=== PATIENT | female | born 1960 | race Caucasian/White ===

== ENCOUNTER → 2016-02-29 | Outpatient (CLI) | payer BC ==
--- NOTE | 2016-02-29 11:48 | WWPN ---
DATE OF SERVICE: 02/29/2016 CHIEF COMPLAINT: Bleeding after more than one year of amenorrhea. HPI: This is a 55-year-old G1, P0-0-1-0 with a last normal menstrual period of 07/2014. She states she had no vaginal bleeding up until 02/23/2016 when she had 4 days of vaginal bleeding which was a light period. She states it was not as heavy as a normal period. She is no longer having any bleeding. She does have occasional infrequent hot flashes that are not very severe. She has been taking progesterone in the form of a cream used daily. She states she has used this for "grumpiness." She thinks it has helped. PAST MEDICAL HISTORY: Elevated cholesterol, seasonal allergies, and hypertension. MEDICATIONS: 1. Amlodipine with benazepril 1 daily. 2. Progesterone cream used daily. 3. Calcium supplement daily. 4. Vitamin D supplement daily. 5. Tumeric supplement daily. 6. Multivitamin daily. REVIEW OF SYSTEMS: Weight has been stable. She denies respiratory, cardiac, or GI problems. PHYSICAL EXAM: Blood pressure 128/83. Height 5 feet 2 inches. Weight 260 pounds. Temperature 97.3, pulse 68. This a well-developed, heavyset white female who is alert and oriented x3, in no acute distress. ABDOMEN: Soft, nontender, without palpable masses. PELVIC EXAM: Normal external genitalia. Cervix and vagina appear normal. There is no unusual discharge and no blood in the vagina. There is no evidence of prolapse. The uterus is midposition, nongravid size and nontender. There are no palpable adnexal masses or tenderness. IMPRESSION: 1. A 55-year-old early menopausal female with light postmenopausal bleeding after one year of amenorrhea. 2. History of benign D&C in 2013 for some type of abnormal bleeding. PLAN: 1. The patient will be scheduled for pelvic ultrasound. Will do this to evaluate the endometrial thickness. She states she had an endometrial biopsy attempted in 2013, which was unsuccessful and very painful according to the patient. She then did endometrial sampling in the hospital as an outpatient with anesthesia. This probably was a D&C and possible hysteroscopy. 2. If thickened endometrium is noted, she will be referred back to Dr. Lazo for a possible re-evaluation with hysteroscopy and D&C. If the endometrial is thin, consider conservative management. Total time spent with the patient 20 minutes.
--- NOTE | 2016-02-29 12:48 | US ---
EXAMINATION TYPE: US pelvic complete DATE OF EXAM: 02/29/2016 12:32 PM COMPARISON: NONE CLINICAL HISTORY: Post james bleeding one episode, no pain. TECHNIQUE: TA Date of LMP: September 2014 EXAM MEASUREMENTS: Uterus: 6.8 x 3.9 x 5.4cm Endometrial Stripe: 0.4cm Right Ovary: 1.6 x 1.3 x 1.4cm Left Ovary: 2.7 x 2.1 x 1.9cm FINDINGS: 1. Uterus: Anteverted wnl no uterine mass seen. 2. Endometrium: wnl 3. Right Ovary: wnl no ovarian or adnexal mass. 4. Left Ovary: wnl no ovarian or adnexal mass. 5. Bilateral Adnexa: wnl 6. Posterior cul-de-sac: wnl IMPRESSION: No distinct abnormality appreciated.
== END | disposition home or self-care (01) ==
LOC: WWCWWP 10:38
PROVIDERS: ATTEND Obstetrics & Gynecology
DX: N95.0 Postmenopausal bleeding (principal)
CPT/HCPCS: 76856

== ENCOUNTER → 2016-07-11 | Outpatient (CLI) | payer BC ==
--- NOTE | 2016-07-12 05:55 | WWHP ---
DATE OF SERVICE: 07/11/2016 CHIEF COMPLAINT: The patient is here for her routine gynecologic exam and mammogram. HPI: This is a 56-year-old G1, P0-0-1-0 with an LMP of 2014. She had been seen in February because of small amount of vaginal spotting. Endometrial thickness was thin. She states she has not had any recurrent bleeding since then. The patient is complaining of some vulvar pruritus greater on the left side. She denies any vaginal discharge or odor. PAST MEDICAL HISTORY: Elevated cholesterol, seasonal allergies and chronic hypertension. MEDICATIONS: 1. Amlodipine benazepril 1 daily. 2. Progesterone cream used daily 3 weeks out of every month. 3. Pravastatin 10 mg daily. ALLERGIES: No known drug allergies. PAST SURGICAL HISTORY: D&C in 2013. 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 SOCIAL HISTORY: She quit smoking at age 44 and has about 2 alcoholic drinks per month and denies drug use. She has been with her boyfriend since 2007 and lives with him on the weekends, but she does have her own home. 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 FAMILY HISTORY: Parents have dementia. Mother had CVA and osteoporosis. Father also had coronary artery disease. REVIEW OF SYSTEMS: The patient has lost 6 pounds over the last year. She denies respiratory, cardiac, or GI problems. She has been experiencing some fatigue and feeling tired. PHYSICAL EXAM: Blood pressure 119/85. Height 5 feet 3-1/2 inches. Weight 252 pounds. Temperature 98.6, pulse 67. This a well-developed, heavyset white female who is alert and oriented x3 in no acute distress. HEENT is within normal limits. NECK: Supple without mass or thyromegaly. CHEST AND LUNGS: Clear to auscultation. HEART: Regular rate and rhythm. Breasts are without mass or discharge. Axillary exam is negative for adenopathy. BACK: Negative for CVA tenderness. ABDOMEN: Mildly obese, soft, nontender, without palpable masses. PELVIC EXAM: External genitalia reveals some mild generalized vulvar erythema. The perineum has a mild pallor throughout. She also has a well-demarcated area that extends from the perineum to the perianal area and that appears as mild erythema. She states she was diagnosed with intertrigo between the buttocks and the posterior area behind the rectum. Cervix and vagina appear normal. There is no unusual vaginal discharge. There is no cervical motion tenderness. The uterus is midposition, nongravid size and nontender. There are no palpable adnexal masses or tenderness. Rectovaginal exam is negative for mass or tenderness and is negative for occult blood. EXTREMITIES: Nontender. IMPRESSION: A 56-year-old menopausal female with vulvar pruritus and mild pallor in the perineal region. There is also some inflammation that extends to the perianal area. Differential diagnosis will include lichen sclerosus, chronic vulvitis as well as intertrigo. PLAN: 1. Pap smear was deferred, since she had a normal one last year. 2. Self breast examination was discussed. 3. Mammogram will be done today. 4. We will have a trial of Kenalog 0.1% cream, which she will use the vulvar area as well as the perineal and perianal areas twice a day for the next 2 weeks. She will then use it p.r.n. She will return in approximately 2 months for re-evaluation. If no significant change, consider perineal and/or vulvar biopsy. 5. She will also return in one year.
--- NOTE | 2016-07-12 09:57 | MM ---
Reason for exam: screening (asymptomatic). Last mammogram was performed 1 year and 1 month ago. History: Patient is nulliparous. Taking progesterone for 6 years beginning at age 44. Physical Findings: A clinical breast exam by your physician is recommended on an annual basis and results should be correlated with mammographic findings. MG Screening Mammo w CAD Bilateral CC and MLO view(s) were taken. Prior study comparison: June 09, 2015, left breast MG work up mamm w CAD LT. June 01, 2015, bilateral MG screening mammo w CAD. There are scattered fibroglandular densities. There is no discrete abnormality. ASSESSMENT: Negative, BI-RAD 1 RECOMMENDATION: Routine screening mammogram of both breasts in 1 year.
== END ==
LOC: WWCWWP 16:01
PROVIDERS: ATTEND Obstetrics & Gynecology
DX: Z12.31 Encounter for screening mammogram for malignant neoplasm of breast (principal)

== ENCOUNTER → 2017-03-08 | Outpatient (CLI) | payer BC ==
--- NOTE | 2017-03-13 12:35 | HM ---
HOLTER MONITOR REPORT DATE OF SERVICE: 03/08/2017 INDICATION OF THE STUDY: Palpitations. The patient was monitored for 24 hours. The baseline rhythm appeared to be sinus mechanism with a minimum heart rate of 48 beats per minute. Max heart rate 150 beats per minute, average heart rate 74 beats per minute. Ventricular ectopic events were presented in less than 1% of the total beats count. Supraventricular ectopic events were in less than 1% of the total beats count. The patient had no evidence of sinus pause or sinus rhythm. No evidence of cardiac arrhythmia noted. No evidence of any advanced AV block noted. CONCLUSION: 1. Sinus rhythm as a baseline mechanism. 2. Rare ventricular ectopic events. 3. Rare supraventricular ectopic events. 4. There is no evidence of sinus pause or sinus arrest. 5. There is no evidence of any advanced AV block. 6. There is no evidence of any sustained tachyarrhythmia noted. MMODL / IJN: [id number] /
== END | disposition home or self-care (01) ==
LOC: RADECHMAIN 11:55
PROVIDERS: ATTEND Family Medicine
DX: R00.2 Palpitations (principal)
CPT/HCPCS: 93225; 93226

== ENCOUNTER → 2017-04-19 | Outpatient (CLI) | payer BC ==
--- NOTE | 2017-04-19 20:05 | CONS ---
CONSULTATION DATE OF SERVICE: 04/19/2017. SUBJECTIVE: An 56-year-old lady has been evaluated in [facility] Center for possible obstructive sleep apnea-hypopnea syndrome. HISTORY OF PRESENT ILLNESS/SLEEP-WAKE EVALUATION: The patient had a sleep study about 15 years ago, at that time she was told that she has borderline changes of her breathing. At the present time her sleep schedule on working days is from around 10 or 11 p.m. until 5 or 6:30 a.m. and on weekends from around 11p.m. to around 8 a.m. No problems with falling asleep. She has an ipad and uses her iphone in her bedroom. She usually sleeps on the side position. She snores and her snoring has become more loud for the last year while she also increased her weight. She has awakenings with severe acid reflux, some changes of the breathing and feels palpitation feeling that her heart is stopped and she sits up in her bed. In the morning she wakes up tired. She may have sleepiness during the day. [place] Sleepiness Scale increased to 10. She wakes up from sleep up to 6 times and up to 3 episodes of nocturia. PAST MEDICAL HISTORY: Positive for hypertension, hyperlipidemia, asthma. PAST SURGICAL HISTORY: D and C. SOCIAL HISTORY: Positive for smoking for about 20 years, half pack a day, quit 13 years ago. Alcohol consumption occasional. MEDICATIONS: Amlodipine, simvastatin, Qvar inhaler on a p.r.n. basis. FAMILY HISTORY: Hypertension, angina, heart problems, hyperlipidemia, stroke, arthritis, snoring, headaches, insomnia, acid reflux. REVIEW OF SYSTEMS: Multiple awakenings from sleep, tiredness and sleepiness during the day. Increasing weight. PHYSICAL EXAM: lady without distress. BP 158/81, HR 62, RR 16, height 5 feet 3 inches, weight 258, BMI 35.7, temperature 97.8. Oxygen saturation at room air 97%. Oropharynx, short distance between soft palate and posterior pharyngeal wall. Neck 15-1/4 inch in circumference. Abdomen obese. HEENT PERRLA, EOMI, evaluation of oropharynx showed tongue protrudes midline. Neck Supple, no JVD. Thyroid is not palpable. LUNGS Clear to percussion and to auscultation. Good air exchange. No wheezing or rhonchi. HEART S1, S2 regular. No murmurs, gallops, or rubs. ABDOMEN Soft and nontender. Bowel sounds are present. No organomegaly appreciated. EXTREMITIES No clubbing or cyanosis. OPERATIONS MANAGER STATION Awake, alert, and oriented X3. Cranial nerves 2 to 7 intact. There is no fasciculation or atrophy. noted. No focal deficits observed. IMPRESSION: 1. Snoring, multiple awakenings from sleep with nocturia, excessive daytime sleepiness. [place] Sleepiness Scale increased to 10. Obstructive sleep apnea- hypopnea syndrome. 2. Obesity, body mass index 45.73. 3. Hypertension. 4. Hyperlipidemia. 5. History of asthma. 6. Status post D and C. PLAN: 1. Polysomnography for evaluation of patient's breathing during sleep. 2. CPAP/BiPAP titration if sleep study confirms obstructive sleep apnea-hypopnea syndrome. 3. Preferable position during sleep on the side. 4. No driving if patient feels any sleepiness. Patient is aware of civil and criminal liability for unsafe driving. 5. I will see patient for follow up visit to explain results of testing and following plan. Thank you very much for referring the patient for consultation. Enzo Benitez MD, PhD, FAASM Diplomat of [place] [employer] Specialties [place] [employer] Medicine Side Stitching Machine Operator of [facility] [place] MMODL / IJN: [id number] /
== END | disposition home or self-care (01) ==
LOC: SLEEP 13:37
PROVIDERS: ATTEND Internal Medicine
DX: G47.33 Obstructive sleep apnea (adult) (pediatric) (principal); E66.9 Obesity, unspecified; I10 Essential (primary) hypertension; F10.20 Alcohol dependence, uncomplicated; E78.5 Hyperlipidemia, unspecified; J45.909 Unspecified asthma, uncomplicated; Z87.59 Personal history of other complications of pregnancy, childbirth and the puerperium; Z68.42 Body mass index [BMI] 45.0-49.9, adult; Z87.891 Personal history of nicotine dependence; Z79.899 Other long term (current) drug therapy; Z79.51 Long term (current) use of inhaled steroids
CPT/HCPCS: 99211

== ENCOUNTER → 2017-07-24 | Outpatient (CLI) | payer BC ==
[2017-07-24 16:22] VITALS: BP 119/83; PULSE 69; TEMP 98.5; BMI 44.4
--- NOTE | 2017-07-24 17:10 | P.HPOB ---
History of Present Illness H&P Date: 07/24/17 Chief Complaint: The patient is here for her routine gynecologic exam and mammogram. This is a 57-year-old with an LMP of 2015. The patient is without gynecologic complaints and denies any postmenopausal bleeding. Review of Systems Weight has been stable. She denies respiratory, cardiac, or G.I. problems. Past Medical History Past Medical History: GERD/Reflux, Hyperlipidemia, Hypertension Additional Past Medical History / Comment(s): Seasonal allergies. 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 History of Any Multi-Drug Resistant Organisms: None Reported Additional Past Surgical History / Comment(s): colonoscopy. D&C 2013. Past Anesthesia/Blood Transfusion Reactions: No Reported Reaction Past Psychological History: No Psychological Hx Reported Smoking Status: Former smoker (Quit at age 44) Past Alcohol Use History: Rare Past Drug Use History: None Reported Additional History: She has been with her boyfriend since 2007. She lives with him on the weekends. 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 - Past Family History Father Family Medical History: Coronary Artery Disease (CAD), Dementia Mother Family Medical History: CVA/TIA, Dementia Brother(s) Family Medical History: CVA/TIA Medications and Allergies Home Medications Medication Instructions Recorded Confirmed Type Jamie Cit/Mag/D3/Zn/Heel Blacker/Fredy/Bor 1 each PO 08/04/13 08/04/13 History [Citracal-Vit D + Magnesium Tab] Multivitamins, Thera [Multivitamin] 1 each PO DAILY 08/04/13 07/24/17 History Fexofenadine/Pseudoephedrine 1 each PO BID 07/24/17 07/24/17 History [Lani-D 12 Hour Tablet] Fluticasone Propionate [Flonase 1 spray EA NOSTRIL DAILY 07/24/17 07/24/17 History Allergy Relief] Hydrocortisone/Iodoquinol Crm 1 applic TOPICAL BID PRN 07/24/17 07/24/17 History [Vytone 1%-1%] Meclizine [Antivert] 25 mg PO TID PRN 07/24/17 07/24/17 History Rosuvastatin Calcium [Crestor] mg PO DAILY 07/24/17 History Ubidecarenone [Co Q-10] mg PO DAILY 07/24/17 History amLODIPine BES/OLMESARTAN MED tab PO DAILY 07/24/17 History [amLODIPine BES/OLMESARTAN MED 10-20 mg] buPROPion HCL [Wellbutrin SR] mg PO DAILY 07/24/17 History Allergies Allergy/AdvReac Type Severity Reaction Status Date / Time latex Allergy red skin Verified 07/24/17 16:17 Penicillins AdvReac Nausea & Verified 07/24/17 16:17 Vomiting & Diarrhea Exam - Vital Signs Vital signs: Vital Signs Temp Pulse BP 07/24/17 16:17 98.5 F 69 119/83 Intake and Output 07/24/17 07/24/17 07/24/17 06:59 14:59 22:59 Other: Weight 113.852 kg Height 5'3", BMI 44.5. This is a well-developed well-nourished heavyset white female who is alert and oriented times 3 in no acute distress. HEENT: Within normal limits. NECK: Supple without mass or thyromegaly. CHEST AND LUNGS: Clear to auscultation. HEART: Regular rate and rhythm. BREASTS: Are without mass or discharge. AXILLARY EXAM: Negative for adenopathy. BACK: Negative for CVA tenderness. ABDOMEN: Soft, obese, nontender, without palpable masses. PELVIC EXAM: Normal external genitalia with minimal atrophy. Cervix and vagina appear normal with minimal atrophy. There is no unusual discharge. There is no evidence of prolapse. The uterus is midposition, nongravid size and nontender. There are no palpable adnexal masses or tenderness. RECTAL EXAM: rectovaginal exam is negative for mass or tenderness and is negative for occult blood. EXTREMITIES: Nontender. IMPRESSION: 1. 57-year-old menopausal female with normal gynecologic exam. PLAN: 1. Pap smear was performed. 2. Self breast awareness was discussed. 3. Screening mammogram will be done today. 4. Osteoporosis prevention was discussed. 5. She will return in one year.
--- NOTE | 2017-07-26 11:54 | MM ---
Reason for exam: screening (asymptomatic). Last mammogram was performed 1 year ago. History: Patient is nulliparous. Taking progesterone for 6 years beginning at age 44. Physical Findings: A clinical breast exam by your physician is recommended on an annual basis and results should be correlated with mammographic findings. MG Screening Mammo w CAD Bilateral CC and MLO view(s) were taken. Prior study comparison: July 11, 2016, bilateral MG screening mammo w CAD. June 09, 2015, left breast MG work up mamm w CAD LT. There are scattered fibroglandular densities. There is no discrete abnormality. ASSESSMENT: Negative, BI-RAD 1 RECOMMENDATION: Routine screening mammogram of both breasts in 1 year.
== END | disposition home or self-care (01) ==
LOC: WWCWWP 15:58
PROVIDERS: ATTEND Obstetrics & Gynecology
DX: Z12.31 Encounter for screening mammogram for malignant neoplasm of breast (principal)
CPT/HCPCS: 77067

== ENCOUNTER → 2017-09-10 | Outpatient (CLI) | payer BC ==
--- NOTE | 2017-09-10 11:29 | MR ---
EXAMINATION TYPE: MR brain wo/w con DATE OF EXAM: 09/10/2017 COMPARISON: None HISTORY: Dizziness CONTRAST: Performed utilizing 12.5 mL intravenous Gadavist gadolinium contrast. TECHNIQUE: Multiplanar, multiecho imaging on a 3.0 Lill[place] magnet is performed through the brain. Stud y is performed within 24 hours of arrival to the hospital. The craniovertebral junction is normal. The pituitary is normal. Diffusion-weighted imaging is performed. No abnormal hyperintensity is present to suggest an acute i ntracranial infarct or acute ischemic change. Suspicious signal within the brain is not evident. Ventricles and sulci are appropriate for the patient age. No abnormal enhancement is evident. IMPRESSIONS: 1. Normal pre and postcontrast MRI brain.
--- NOTE | 2017-09-10 15:27 | MR ---
EXAMINATION TYPE: MR angio head wo con DATE OF EXAM: 09/10/2017 COMPARISON: None HISTORY: Dizziness TECHNIQUE: Time of flight images focusing on the [place] were performed without contrast. 3- D [id number] reconstructed images are reviewed. Source images are reviewed. FINDINGS: Vertebral arteries appear codominant. Basilar artery is unremarkable. Posterior cerebral v asculature is normal. Internal carotid arteries bifurcate into anterior and middle cerebral arteries. The anterior communic ating artery is patent. Middle cerebral artery branches appear normal. Ophthalmic artery takeoffs pamella ear normal. The patent posterior communicating arteries are somewhat small. IMPRESSION: [place] appears within normal limits.
== END | disposition home or self-care (01) ==
LOC: RADMRIMAIN 09:13
PROVIDERS: ATTEND Midwife
DX: R42 Dizziness and giddiness (principal)
CPT/HCPCS: 70544; 70553; A9581

== ENCOUNTER → 2017-09-13 | Outpatient (CLI) | payer BC ==
--- NOTE | 2017-09-13 15:04 | PN ---
PROGRESS NOTE DATE OF SERVICE: 09/13/2017 57-year-old lady has been followed in Sleep Center for treatment of obstructive sleep apnea-hypopnea syndrome. Recently patient had home sleep apnea test and CPAP titration. Home sleep apnea test showed apnea-hypopnea index 28.1. Subsequently, she had CPAP titration and titration was effective and she was started on treatment with CPAP. Today, is her first visit after she received her CPAP unit. Patient reported that she feels better with the machine, she sleeps better and she feels better during the day. [place] Sleepiness Scale today is 9. I checked patient's CPAP unit. CPAP pressure 8 cm of water. Usage 42 out of 52 nights for more than 4 hours, which is a about 80%, more than 4 hours per night. Average usage is 4.4 hours. Leak is 12 L/minute, which is acceptable. Apnea-hypopnea index 4.9, which is acceptable. MEDICATIONS: progesterone, vitamins, amlodipine, Wellbutrin and Loratadine. PHYSICAL EXAM: Patient in no distress. BP 117/74, HR 65, RR 18, weight 250.4, temperature 98.4. Oropharynx: Wide pillars, moderately low position of soft palate. Abdomen is slightly obese. Neck Supple, no JVD. Thyroid is not palpable. LUNGS Clear to percussion and to auscultation. Good air exchange. No wheezing or rhonchi. HEART S1, S2 regular. No murmurs, gallops, or rubs. ABDOMEN: Obese. Soft and nontender. Bowel sounds are present. No organomegaly appreciated. EXTREMITIES No clubbing or cyanosis. NATURAL RESOURCES EXTENSION EDUCATOR Awake, alert, and oriented X3. Cranial nerves 2 to 7 intact. There is no fasciculation or atrophy. noted. No focal deficits observed. IMPRESSION: 1. Obstructive sleep apnea-hypopnea syndrome in moderate range close to severe apnea- hypopnea index 28.1, mostly on control on CPAP at 8 cm of water. Patient demonstrated great compliance with treatment benefitting from treatment. 2. Obesity. 3. Hypertension. 4. Hyperlipidemia. 5. History of asthma. 6. Status post D and C. PLAN: 1. Continue treatment with CPAP every night for the whole night. 2. Losing weight. 3. Sleep hygiene with regular time in bed for at least 8 hours. 4. No driving if feeling any sleepiness. Thank you very much for allowing me to participate in management of your patient. Sincerely, Enzo Benitez MD, PhD, FAASM Diplomat of [place] [employer] Special[employer] [place] [employer] Loom Inspector of [facility] [place] ROCÍO / MATTIE: [id number] /
== END | disposition home or self-care (01) ==
LOC: SLEEP 13:57
PROVIDERS: ATTEND Internal Medicine
DX: G47.33 Obstructive sleep apnea (adult) (pediatric) (principal); E66.9 Obesity, unspecified; I10 Essential (primary) hypertension; E78.5 Hyperlipidemia, unspecified; J45.909 Unspecified asthma, uncomplicated; Z98.890 Other specified postprocedural states; Z79.818 Long term (current) use of other agents affecting estrogen receptors and estrogen levels; Z99.89 Dependence on other enabling machines and devices; Z79.899 Other long term (current) drug therapy

== ENCOUNTER → 2018-07-30 | Outpatient (CLI) | payer BC ==
--- NOTE | 2018-07-31 01:12 | MR ---
EXAMINATION TYPE: MR ankle RT wo con DATE OF EXAM: 07/30/2018 COMPARISON: None HISTORY: Pain in right foot /Peroneal tendonitis Standard multiplanar, multisequence MRI departmental protocol Multiplanar, multisequence images of the right ankle were acquired. FINDINGS: There is plantar calcaneal spurring. Achilles tendon is intact. Plantar fascia is intact. S ubtalar joint appears normal. Ankle mortise is anatomic. Joint spaces are fairly normal. The medial a nd lateral flexor tendons appear intact. Collateral ligaments are intact. There is diffuse increased signal in the proximal cuboidal bone on the T2 images. There is no fractur e line seen. There is mild increased signal also in the anterior calcaneus at the calcaneal cuboidal joint. There is subcutaneous edema involving the lateral aspect of the midfoot. There is mild ankle j oint effusion. IMPRESSION: There is some edema in the mid foot on both sides of the calcaneal cuboidal joint consistent with a s ignificant bone bruise. No fracture line seen. Mild ankle joint effusion. No evidence of ligament or tendon tear. Subcutaneous edema.
== END | disposition home or self-care (01) ==
LOC: RADMRIMAIN 16:03
PROVIDERS: ATTEND Podiatrist Foot & Ankle Surgery
DX: M25.471 Effusion, right ankle (principal)

== ENCOUNTER → 2018-10-01 | Outpatient (CLI) | payer BC ==
[2018-10-01 10:58] VITALS: BP 126/89; PULSE 69; RESP 18; TEMP 98.1; BMI 44.2
--- NOTE | 2018-10-01 12:16 | P.HPOB ---
History of Present Illness H&P Date: 10/01/18 Chief Complaint: The patient is here for her routine gynecologic exam and ma mmogram. This is a 58-year-old with an LMP of 2015. The patient is without gynecologic complaints and denies any postmenopausal bleeding. Review of Systems The patient's weight has been stable over the last year. She denies respiratory, cardiac, or G.I. problems. Musculoskeletal: she has been having right foot problems and is seeing somebody for this. Past Medical History Past Medical History: Coronary Artery Disease (CAD), GERD/Reflux, Hyperlipidemia, Hypertension Additional Past Medical History / Comment(s): Seasonal allergies. 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 History of Any Multi-Drug Resistant Organisms: None Reported Additional Past Surgical History / Comment(s): colonoscopy 2008. D&C 2013. Past Anesthesia/Blood Transfusion Reactions: No Reported Reaction Past Psychological History: No Psychological Hx Reported Smoking Status: Former smoker Past Alcohol Use History: Rare Past Drug Use History: None Reported Additional History: Quit smoking at age 44. She is single and has been with her boyfriend since 2018. She spends much of her summer living with him, but they live separately during the school year. 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 - Past Family History Father Family Medical History: Coronary Artery Disease (CAD), Dementia Mother Family Medical History: CVA/TIA, Dementia Brother(s) Family Medical History: CVA/TIA Medications and Allergies Home Medications Medication Instructions Recorded Confirmed Type Hydrocortisone/Iodoquinol Crm 1 applic TOPICAL BID PRN 07/24/17 10/01/18 History [Vytone 1%-1%] Meclizine [Antivert] 25 mg PO TID PRN 07/24/17 10/01/18 History Rosuvastatin Calcium [Crestor] 20 mg PO DAILY 07/24/17 10/01/18 History Ubidecarenone [Co Q-10] 200 mg PO DAILY 07/24/17 10/01/18 History amLODIPine BES/OLMESARTAN MED 1 tab PO DAILY 07/24/17 10/01/18 History [amLODIPine BES/OLMESARTAN MED 10-20 mg] buPROPion HCL [Wellbutrin SR] 150 mg PO DAILY 07/24/17 10/01/18 History Cholecalciferol (Vitamin D3) 5,000 unit PO DAILY 10/01/18 10/01/18 History [Vitamin D3] Loratadine [Claritin] 10 mg PO DAILY 10/01/18 10/01/18 History Allergies Allergy/AdvReac Type Severity Reaction Status Date / Time latex Allergy red skin Verified 10/01/18 10:59 Penicillins AdvReac Nausea & Verified 10/01/18 10:59 Vomiting & Diarrhea Exam Vital Signs Temp Pulse Resp BP Pulse Ox 10/01/18 10:52 98.1 F 69 18 126/89 97 Intake and Output 09/30/18 10/01/18 10/01/18 22:59 06:59 14:59 Other: Weight 113.398 kg Height 5'3", weight 250 pounds, BMI 44.3. This is a well-developed well-nourished heavyset white female who is alert and oriented times 3 in no acute distress. HEENT: Within normal limits. NECK: Supple without mass or thyromegaly. CHEST AND LUNGS: Clear to auscultation. HEART: Regular rate and rhythm. BREASTS: Are without mass or discharge. AXILLARY EXAM: Negative for adenopathy. BACK: Negative for CVA tenderness. ABDOMEN: Soft, obese, nontender, without palpable masses. PELVIC EXAM: Normal external genitalia with minimal atrophy. Cervix and vagina appear normal with minimal atrophy. There is no unusual discharge. There is no evidence of prolapse. The uterus is midposition, nongravid size and nontender. There are no palpable adnexal masses or tenderness. Bimanual examination is somewhat limited secondary to her size. RECTAL EXAM: Rectovaginal exam is negative for mass or tenderness and is negative for occult blood. EXTREMITIES: Nontender. IMPRESSION: 1. 58-year-old menopausal female with normal gynecologic exam. PLAN: 1. Pap smear was deferred since she had a normal one on 07/24/2017. 2. Self breast awareness was discussed with the patient. 3. Screening mammogram will be done today. 4. Osteoporosis prevention was discussed. I have stressed the importance of adequate calcium, vitamin D and regular exercise. Recommended amounts of calcium and vitamin D were also discussed. 5. I have recommended screening colonoscopy since it has been about 10 years since her last one. I have recommended that she speak with Dr. Murillo's office regarding this to see if they can help her to arrange for a colonoscopy. 6. She was advised to return in one year for her annual well woman exam.
--- NOTE | 2018-10-02 10:03 | MM ---
Reason for exam: screening (asymptomatic). Last mammogram was performed 1 year and 2 months ago. History: Patient is nulliparous. Taking progesterone for 6 years beginning at age 44. Physical Findings: A clinical breast exam by your physician is recommended on an annual basis and results should be correlated with mammographic findings. MG Screening Mammo w CAD Bilateral CC and MLO view(s) were taken. Prior study comparison: July 24, 2017, bilateral MG screening mammo w CAD. July 11, 2016, bilateral MG screening mammo w CAD. There are scattered fibroglandular densities. There is no discrete abnormality. No significant changes when compared with prior studies. ASSESSMENT: Negative, BI-RAD 1 RECOMMENDATION: Routine screening mammogram of both breasts in 1 year.
== END | disposition home or self-care (01) ==
LOC: WWCWWP 10:43
PROVIDERS: ATTEND Obstetrics & Gynecology
DX: Z12.31 Encounter for screening mammogram for malignant neoplasm of breast (principal)
CPT/HCPCS: 77067

== ENCOUNTER 2018-12-11 07:28 | Day surgery (SDC) | payer BC ==
[2018-12-10 09:21] VITALS: BMI 44.2
--- NOTE | 2018-12-11 07:12 | P.GSHP ---
History of Present Illness H&P Date: 12/11/18 CHIEF COMPLAINT: Colon screen HISTORY OF PRESENT ILLNESS: The patient is a 58-year-old female who presents for colon screen. Lower endoscopy was offered for further evaluation and management. PAST MEDICAL HISTORY: Please see list. PAST SURGICAL HISTORY: Please see list. MEDICATIONS: Please see list. ALLERGIES: Please see list. SOCIAL HISTORY: No illicit drug use FAMILY HISTORY: No reports of Crohn disease or ulcerative colitis. REVIEW OF ORGAN SYSTEMS: CONSTITUTIONAL: No reports of fevers or chills. PHYSICAL EXAM: VITAL SIGNS: Stable GENERAL: Well-developed pleasant in no acute distress. HEENT: No scleral icterus. Extraocular movements grossly intact. Moist buccal mucosa. NECK: Supple without lymphadenopathy. CHEST: Unlabored respirations. Equal bilateral excursions. CARDIOVASCULAR: Regular rate and rhythm. Distal 2+ pulses. ABDOMEN: Soft, nontender, nondistended. MUSCULOSKELETAL: No clubbing, cyanosis, or edema. ASSESSMENT: 1. Colon screen. PLAN: 1. Recommend proceeding with a lower endoscopy Past Medical History Past Medical History: Coronary Artery Disease (CAD), GERD/Reflux, Hyperlipidemia, Hypertension, Skin Disorder, Sleep Apnea/CPAP/BIPAP Additional Past Medical History / Comment(s): SEASONAL ALLERGIES, USES C-PAP MACHINE, INTERTRIGO BUTTOCKS AREA., STATES DR SAID HEART FLUTTERED DURING HEART CATH- STATES 40% BLOCKAGE.., HEMORRHOID, BLOOD IN STOOL, STATES CT SCHEDULED TO CHECK FOR POSSIABLE HORNERS SYNDROME (LEFT EYELID DROOPS SLIGHTLY) History of Any Multi-Drug Resistant Organisms: None Reported Past Surgical History: Heart Catheterization Additional Past Surgical History / Comment(s): colonoscopy 2008. D&C 2013. Past Anesthesia/Blood Transfusion Reactions: No Reported Reaction Past Psychological History: Anxiety Smoking Status: Former smoker Past Alcohol Use History: Rare Additional Past Alcohol Use History / Comment(s): QUIT SMOKING 15 YRS AGO ( 2003), SMOKED 1/2 PPD, SMOKED 20 YEARS. Past Drug Use History: None Reported - Past Family History Father Family Medical History: Coronary Artery Disease (CAD), Dementia Mother Family Medical History: CVA/TIA, Dementia Brother(s) Family Medical History: CVA/TIA Medications and Allergies Home Medications Medication Instructions Recorded Confirmed Type Rosuvastatin Calcium [Crestor] 20 mg PO HS 07/24/17 12/10/18 History buPROPion HCL [Wellbutrin SR] 150 mg PO DAILY 07/24/17 12/10/18 History Cholecalciferol (Vitamin D3) 5,000 unit PO DAILY 10/01/18 12/10/18 History [Vitamin D3] Loratadine [Claritin] 10 mg PO DAILY 10/01/18 12/10/18 History Alpha Lipoic Acid 50 mg PO DAILY 12/10/18 12/10/18 History Aspirin [Adult Low Dose Aspirin EC] 81 mg PO HS 12/10/18 12/10/18 History Multivitamins, Thera [Multivitamin 1 tab PO DAILY 12/10/18 12/10/18 History (formulary)] Ubidecarenone [Co Q-10] 100 mg PO BID 12/10/18 12/10/18 History amLODIPine BESYLATE/BENAZEPRIL 1 each PO DAILY 12/10/18 12/10/18 History [amLODIPine BESYLATE/BENAZEPRIL 5-10 MG] Allergies Allergy/AdvReac Type Severity Reaction Status Date / Time latex Allergy red skin Verified 12/10/18 08:45 Penicillins AdvReac Nausea & Verified 12/10/18 08:45 Vomiting & Diarrhea
[~2018-12-11 07:28] MED LIST: LACTATED RINGERS 1,000 ML IV SCH; LIDOCAINE 1% 20 ML VIAL (10MG/ML) FOR IV START INTRADERMA PRN
[2018-12-11 07:49] VITALS: RESP 16; TEMP 98.4
[2018-12-11] MEDS ORDERED: PROPOFOL 10 MG/ML 20 ML VIAL IV ONE (08:05)
--- NOTE | 2018-12-11 08:30 | P.PCN ---
Date of Procedure: 12/11/18 Description of Procedure: PREOPERATIVE DIAGNOSIS: Colonoscopy screening. Family history colon polyps POSTOPERATIVE DIAGNOSIS: Colonoscopy screening. Diverticulosis, scattered. Family history colon polyps External hemorrhoids, grade 2 OPERATION: Colonoscopy to the ileocecal valve and appendiceal orifice. SURGEON: Corinna Otero MD. ANESTHESIA: MAC. INDICATIONS: The patient is a 58-year-old female who presents for colonoscopy screening. This is her first colonoscopy per screening guidelines. Benefits and risks were described and informed consent was obtained. DESCRIPTION OF PROCEDURE: The patient had undergone Suprep. She had been brought into the operating room and laid in the left lateral decubitus position. After adequate intravenous sedation, the rectum was examined with 2% lidocaine jelly. External hemorrhoids were encountered. The rectal tone was within normal limits. No lesions were palpated in the rectal vault. An Olympus colonoscope was advanced until the ileocecal valve and appendiceal orifice were clearly viewed. The prep was excellent with clear visualization of the mucosal folds. The scope was removed with visualization of each mucosal fold. Scattered diverticulosis was encountered. No large colonic polyps were found. No evidence of focal colitis was found. Retroflexion of the scope demonstrated grade 1 internal hemorrhoids without active bleeding or inflammation. The colon was desufflated. The patient had tolerated the procedure well. Withdrawal time was over 6 minutes. FINDINGS: Aronchick preparation quality scale 1 (1-5) Internal hemorrhoids, grade 1 External prolapsed hemorrhoids, grade 2 No arteriovenous malformations. No large adenomatous polyps. No focal colitis. RECOMMENDATIONS: Lower endoscopy in 5 years, 2023 Plan - Discharge Summary New Discharge Prescriptions: No Action buPROPion HCL [Wellbutrin SR] 150 mg PO DAILY Rosuvastatin Calcium [Crestor] 20 mg PO HS Loratadine [Claritin] 10 mg PO DAILY Cholecalciferol (Vitamin D3) [Vitamin D3] 5,000 unit PO DAILY Multivitamins, Thera [Multivitamin (formulary)] 1 tab PO DAILY amLODIPine BESYLATE/BENAZEPRIL [amLODIPine BESYLATE/BENAZEPRIL 5-10 MG] 1 each PO DAILY Ubidecarenone [Co Q-10] 100 mg PO BID Aspirin [Adult Low Dose Aspirin EC] 81 mg PO HS Alpha Lipoic Acid 50 mg PO DAILY Discharge Medication List Rosuvastatin Calcium [Crestor] 20 mg PO HS 07/24/17 [History] buPROPion HCL [Wellbutrin SR] 150 mg PO DAILY 07/24/17 [History] Cholecalciferol (Vitamin D3) [Vitamin D3] 5,000 unit PO DAILY 10/01/18 [History] Loratadine [Claritin] 10 mg PO DAILY 10/01/18 [History] Alpha Lipoic Acid 50 mg PO DAILY 12/10/18 [History] Aspirin [Adult Low Dose Aspirin EC] 81 mg PO HS 12/10/18 [History] Multivitamins, Thera [Multivitamin (formulary)] 1 tab PO DAILY 12/10/18 [History] Ubidecarenone [Co Q-10] 100 mg PO BID 12/10/18 [History] amLODIPine BESYLATE/BENAZEPRIL [amLODIPine BESYLATE/BENAZEPRIL 5-10 MG] 1 each PO DAILY 12/10/18 [History] Follow up Appointment(s)/Referral(s): Corinna tOero MD [STAFF PHYSICIAN] - As Needed Patient Instructions/Handouts: Diverticulosis Diet (GEN), Diverticulosis (ED), Hemorrhoids (DC) Activity/Diet/Wound Care/Special Instructions: Repeat colonoscopy in 5 years, 2023 Discharge Disposition: HOME SELF-CARE
[2018-12-11 08:47] VITALS: BP 105/71; PULSE 61
== END 2018-12-11 09:27 | disposition home or self-care (01) ==
LOC: ORWHC2ENDO 07:28
PROVIDERS: ATTEND Surgery Plastic and Reconstructive Surgery
DX: K57.31 Diverticulosis of large intestine without perforation or abscess with bleeding (principal); K64.4 Residual hemorrhoidal skin tags; K64.0 First degree hemorrhoids; I25.10 Atherosclerotic heart disease of native coronary artery without angina pectoris; K21.9 Gastro-esophageal reflux disease without esophagitis; E78.5 Hyperlipidemia, unspecified; G47.30 Sleep apnea, unspecified; F41.9 Anxiety disorder, unspecified; J30.2 Other seasonal allergic rhinitis; Z87.2 Personal history of diseases of the skin and subcutaneous tissue; Z83.71 Family history of colonic polyps; Z79.82 Long term (current) use of aspirin; Z79.899 Other long term (current) drug therapy; Z88.0 Allergy status to penicillin; Z91.040 Latex allergy status; Z87.891 Personal history of nicotine dependence; Z82.49 Family history of ischemic heart disease and other diseases of the circulatory system; Z98.890 Other specified postprocedural states; Z99.89 Dependence on other enabling machines and devices; Z81.8 Family history of other mental and behavioral disorders; Z82.0 Family history of epilepsy and other diseases of the nervous system
CPT/HCPCS: 45378; J2704

== ENCOUNTER → 2018-12-12 | Outpatient (CLI) | payer BC ==
--- NOTE | 2018-12-12 15:08 | CT ---
EXAMINATION TYPE: CT chest wo/w con DATE OF EXAM: 12/12/2018 COMPARISON: None HISTORY: Drooping left eye lid, Kelsy's syndrome CT DLP: 987.9 mGycm Automated exposure control for dose reduction was used. CONTRAST: CT scan of the chest is performed without and with IV Contrast, patient injected with 100 mL of Isovu e 300. FINDINGS: LUNGS: The lungs are grossly clear, there is no concerning parenchymal mass or nodule identified. T here is no pleural effusion or pneumothorax seen. The tracheobronchial tree is patent. MEDIASTINUM: There are no greater than 1 cm hilar or mediastinal lymph nodes. No pericardial effusi on is seen. Thoracic aorta is of normal caliber. The heart is not enlarged. UPPER ABDOMEN: No significant abnormality appreciated. OTHER: No additional significant abnormality is seen. IMPRESSION: No distinct abnormality to account for the patient's symptoms.
== END ==
LOC: RADCTMAIN 14:24
PROVIDERS: ATTEND Ophthalmology Ophthalmic Plastic and Reconstructive Surgery
DX: G90.2 Horner's syndrome (principal)
CPT/HCPCS: 71270; Q9967

== ENCOUNTER → 2019-02-20 | Outpatient (CLI) | payer BC ==
--- NOTE | 2019-02-20 22:04 | PN ---
PROGRESS NOTE DATE OF SERVICE: 02/20/2019 58-year-old lady who has been [facility] for treatment of obstructive sleep apnea-hypopnea syndrome. Patient continued to use her CPAP equipment and sleeps well with the machine. Feels better during the day. [place] Sleepiness Scale is 8. I checked her CPAP unit. CPAP pressure is 8 cm of water. Average usage is slightly short 3.8 hours. Leak is 10 L/minute. Apnea-hypopnea index for the last month is 3.9, which is in acceptable range. MEDICATIONS: Amlodipine, Rosuvastatin, Loratadine, vitamin D, multivitamins, out of the counter progesterone. PHYSICAL EXAM: Patient in no distress. BP 123/77, HR 63, RR 14. Height 5 feet, weight 248.2, BMI 43.9. The patient has lost 2 pounds since previous visit. The oropharynx moderately low soft palate, Mallampati 3-2. NECK: Supple, no JVD. Thyroid is not palpable. LUNGS: Clear to percussion and to auscultation. Good air exchange. No wheezing or rhonchi. HEART: S1, S2 regular. No murmurs, gallops, or rubs. ABDOMEN: Slightly obese. Soft and nontender. Bowel sounds are present. No organomegaly appreciated. EXTREMITIES: No clubbing or cyanosis. MICA MINER BLASTING: Awake, alert, and oriented X3. Cranial nerves 2 to 7 intact. There is no fasciculation or atrophy. noted. No focal deficits observed. Abdomen slightly obese, as the physical exam is for my template. IMPRESSION: 1. Obstructive sleep apnea-hypopnea syndrome. The patient benefitting from CPAP therapy. 2. Hypertension. 3. Obesity. 4. Hyperlipidemia. 5. History of asthma. 6. Status post D and C. PLAN: 1. Patient will continue to use CPAP equipment every night for the whole night. 2. I will maintain all necessary prescriptions for CPAP supplies including nasal pillow, mask and heated tube, filters. 3. If necessary, we will write prescription for travel machine. 4. Losing weight. 5. No driving if feeling any sleepiness. 6. Follow-up visit in 1 year or earlier if any problems. Thank you very much for allowing me to participate in management of your patient. Sincerely, Enzo Benitez MD, PhD, FAASM Diplomat of [place] [employer] [place] [employer] [facility] [place] MMODL / IJN: [id number] /
== END | disposition home or self-care (01) ==
LOC: SLEEP 16:00
PROVIDERS: ATTEND Internal Medicine
DX: G47.33 Obstructive sleep apnea (adult) (pediatric) (principal); I10 Essential (primary) hypertension; E78.5 Hyperlipidemia, unspecified; E66.9 Obesity, unspecified; Z99.89 Dependence on other enabling machines and devices; Z98.890 Other specified postprocedural states; Z87.09 Personal history of other diseases of the respiratory system

== ENCOUNTER → 2019-12-23 | Outpatient (CLI) | payer BC ==
[2019-12-23 15:42] VITALS: BP 126/87; PULSE 65; RESP 20; TEMP 98.1
--- NOTE | 2019-12-23 16:21 | P.HPOB ---
History of Present Illness H&P Date: 12/23/19 Chief Complaint: The patient is here for her routine gynecologic exam and ma mmogram. This is a 59-year-old with an LMP of 2015. The patient is without gynecologic complaints and denies any postmenopausal bleeding. Review of Systems She has lost about 18 pounds over the past year and she relates this to anxiety during the COVID pandemic as well as dietary changes. She denies respiratory or cardiac problems. GI: Occasional constipation. Past Medical History Past Medical History: Coronary Artery Disease (CAD), GERD/Reflux, Hyperlipidemia, Hypertension, Skin Disorder, Sleep Apnea/CPAP/BIPAP Additional Past Medical History / Comment(s): SEASONAL ALLERGIES, USES C-PAP MACHINE. 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 History of Any Multi-Drug Resistant Organisms: None Reported Past Surgical History: Heart Catheterization Additional Past Surgical History / Comment(s): colonoscopy 2019(next after 5yr). D&C 2014. Past Anesthesia/Blood Transfusion Reactions: No Reported Reaction Past Psychological History: Anxiety Smoking Status: Former smoker Past Alcohol Use History: Rare (2 per year) Additional Past Alcohol Use History / Comment(s): QUIT SMOKING 2003, SMOKED 1/2 PPD, SMOKED 20 YEARS. Past Drug Use History: None Reported Additional History: She is single and has been with her boyfriend since 2007. Delivered separately, but spend much time together. 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 Both parents have some type of dementia and lives in this area. - Past Family History Father Family Medical History: Coronary Artery Disease (CAD), Dementia Mother Family Medical History: CVA/TIA, Dementia Brother(s) Family Medical History: CVA/TIA Medications and Allergies Home Medications Medication Instructions Recorded Confirmed Type Rosuvastatin Calcium [Crestor] 20 mg PO HS 07/24/17 12/23/19 History buPROPion HCL [Wellbutrin SR] 150 mg PO DAILY 07/24/17 12/23/19 History Cholecalciferol (Vitamin D3) 2,000 unit PO DAILY 10/01/18 12/23/19 History [Vitamin D3] Loratadine [Claritin] 10 mg PO DAILY 10/01/18 12/23/19 History Aspirin [Adult Low Dose Aspirin EC] 81 mg PO HS 12/10/18 12/23/19 History Multivitamins, Thera [Multivitamin 1 tab PO DAILY 12/10/18 12/23/19 History (formulary)] Ubidecarenone [Co Q-10] 100 mg PO BID 12/10/18 12/23/19 History amLODIPine BESYLATE/BENAZEPRIL 1 each PO DAILY 12/10/18 12/23/19 History [amLODIPine BESYLATE/BENAZEPRIL 5-10 MG] Meclizine [Antivert] 12.5 mg PO Q8HR PRN 12/23/19 12/23/19 History Allergies Allergy/AdvReac Type Severity Reaction Status Date / Time latex Allergy red skin Verified 12/23/19 15:33 Penicillins AdvReac Nausea & Verified 12/23/19 15:33 Vomiting & Diarrhea Exam Vital Signs Temp Pulse Resp BP Pulse Ox 12/23/19 15:36 98.1 F 65 20 126/87 99 Intake and Output 12/23/19 12/23/19 12/23/19 06:59 14:59 22:59 Other: Weight 105.233 kg Height 5 feet 2-1/2 inches, weight 232 pounds, BMI 41.8. This is a well-developed well-nourished heavyset white female who is alert and oriented times 3 in no acute distress. HEENT: Within normal limits. NECK: Supple without mass or thyromegaly. CHEST AND LUNGS: Clear to auscultation. HEART: Regular rate and rhythm. BREASTS: Are without mass or discharge. AXILLARY EXAM: Negative for adenopathy. BACK: Negative for CVA tenderness. ABDOMEN: Soft, nontender, without palpable masses. PELVIC EXAM: Normal external genitalia with mild atrophy. Cervix and vagina appear normal mild atrophy. There is no unusual discharge. There is no evidence of prolapse. The uterus is midposition, nongravid size and nontender. There are no palpable adnexal masses or tenderness. RECTAL EXAM: Rectovaginal exam is negative for mass or tenderness and is negative for occult blood. EXTREMITIES: Nontender. IMPRESSION: 1. 59-year-old menopausal female with normal gynecologic exam. PLAN: 1. Pap smear was performed. 2. Self breast awareness was discussed with the patient. 3. Screening mammogram will be done today. 4. Osteoporosis prevention was discussed. I have stressed the importance of adequate calcium, vitamin D and regular exercise. Recommended amounts of calcium and vitamin D were also discussed. 5. She was advised to return in one year for her annual well woman exam.
--- NOTE | 2019-12-24 13:17 | MM ---
Reason for exam: screening (asymptomatic). Last mammogram was performed 1 year and 3 months ago. History: Patient is nulliparous. Taking progesterone for 6 years beginning at age 44. Physical Findings: A clinical breast exam by your physician is recommended on an annual basis and results should be correlated with mammographic findings. MG Screening Mammo w CAD Bilateral CC and MLO view(s) were taken. Prior study comparison: October 01, 2018, bilateral MG screening mammo w CAD. July 24, 2017, bilateral MG screening mammo w CAD. There are scattered fibroglandular densities. No significant changes when compared with prior studies. ASSESSMENT: Negative, BI-RAD 1 RECOMMENDATION: Routine screening mammogram of both breasts in 1 year.
== END | disposition home or self-care (01) ==
LOC: WWCWWP 15:18
PROVIDERS: ATTEND Obstetrics & Gynecology
DX: Z12.31 Encounter for screening mammogram for malignant neoplasm of breast (principal)
CPT/HCPCS: 77067

== ENCOUNTER → 2020-01-07 | Outpatient (CLI) | payer BC ==
[2020-01-07 12:28] VITALS: BP 131/87; PULSE 76; RESP 18; TEMP 98.4
--- NOTE | 2020-01-07 12:44 | P.PN ---
Progress Note - Text Progress Note Date: 01/07/20 Pap smear done on 12/23/2019 was unsatisfactory with inadequate cells. The patient has return for a repeat Pap smear. Blood pressure 131/87, height 5 feet 2 inches, weight 229 pounds, temperature 98.4, pulse 76, pulse oximeter 99%. Cervix and vagina appear within normal limits and there is no unusual vaginal discharge. Impression: Recent unsatisfactory Pap smear Plan: Repeat Pap smear with co-testing was performed. The patient will be called with results when available.
--- NOTE | 2020-01-20 17:49 | P.PN ---
Progress Note - Text Progress Note Date: 01/20/20 OUTPATIENT FOLLOW-UP NOTE TEST(S)/RESULTS: Pap smear cotest done on 01/07/2020 was negative negative METHOD OF NOTIFICATION: Patient was notified by phone. PATIENT COMMENTS: He should is happy to hear these results DIAGNOSIS: Negative Pap smear cotest DISCUSSION: [] PLAN: She was advised to return in one year for her annual well woman exam. Repeat Pap smear cotest in 4-5 years.
== END | disposition home or self-care (01) ==
LOC: WWCWWP 12:15
PROVIDERS: ATTEND Obstetrics & Gynecology
DX: Z53.9 Procedure and treatment not carried out, unspecified reason (principal)

== ENCOUNTER → 2020-04-29 | Outpatient (CLI) | payer BC ==
--- NOTE | 2020-04-29 18:09 | SFUN ---
SLEEP CENTER FOLLOW UP NOTE DATE OF SERVICE: 04/29/2020 This 59-year-old lady has been followed in Sleep Center for treatment of obstructive sleep apnea-hypopnea syndrome. Her previous visit was one year ago. The patient continues to use her CPAP equipment every night for the whole night. She started to use a pigs feet cleaner system for her CPAP equipment. She also cleans it herself every day. I checked her CPAP unit. Usage is 24/30 nights and 18/30 nights for more than 4 hours, average usage 4.3 hours per night. Pressure is 8 cm of water. Leak is 14 L/minute. Apnea-hypopnea index increased to 11.9 compared with her previous visit, and that includes central apnea-hypopnea index 1.4. [place] Sleepiness Scale is 6. MEDICATIONS: 1. Bupropion 150 mg once a day. 2. Amlodipine/benazepril 5/10 mg once a day. 3. Loratadine 10 mg once a day. 4. Rosuvastatin 20 mg once a day. 5. Aspirin 81 mg once a day. 6. Meclizine on p.r.n. basis. PHYSICAL EXAMINATION: GENERAL: A pleasant patient in no distress. VITAL SIGNS: BP 131/87, HR 62, RR 16, height 5 feet 2-1/2 inches, weight 234.0 pounds, temperature 97.8, oxygen saturation at room air 100%. Body mass index 42.1. Patient lost 12 pounds since her previous visit. HEENT: PERRLA, EOMI. Evaluation of oropharynx showed tongue protrudes midline. Moderately low position of soft palate. Mallampati II to III. NECK: Supple. No JVD. Thyroid is not palpable. LUNGS: Clear to percussion and to auscultation. Good air exchange. No wheezing or rhonchi. HEART: S1, S2 regular. No murmurs, gallops or rubs. ABDOMEN: Obese. EXTREMITIES: No clubbing or cyanosis. SHOE MAKER: Awake, alert, and oriented X3. Cranial nerves 2 to 7 intact. There is no fasciculation or atrophy. noted. No focal deficits observed. IMPRESSION: 1. Obstructive sleep apnea-hypopnea syndrome. The patient demonstrated borderline compliance with treatment, benefitting from treatment. Apnea-hypopnea index increased to 11.9. 2. Obesity. 3. Hypertension. 4. Hyperlipidemia. 5. History of asthma. 6. Status post dilatation and curettage. PLAN: 1. I changed regimen of CPAP unit from 8 cm of water to automatic range 6 to 12 cm of water. 2. Patient will continue to use PAP equipment every night for the whole night. 3. Sleep hygiene with regular time in bed for at least 7-1/2 to 8 hours. 4. Precautions related to driving. No driving if feeling sleepiness. 5. I will maintain all necessary prescription for PAP supplies including mask, tube, filters. 6. Watching weight. 7. Follow-up visit in 6 months or earlier if patient has any problems. Thank you very much for allowing me to participate in the management of your patient. Sincerely, Enzo Benitez MD, PhD, FAASM Diplomat of Citizen Of [place] Board of Medical Specialties Citizen Of [place] Board of Internal Medicine Pharmacy Specialist of [facility] [place] MMODL / MIGUELN: [id number] /
== END ==
LOC: SLEEP 15:33
PROVIDERS: ATTEND Internal Medicine
DX: G47.33 Obstructive sleep apnea (adult) (pediatric) (principal); I10 Essential (primary) hypertension; E78.5 Hyperlipidemia, unspecified; J45.909 Unspecified asthma, uncomplicated; E66.9 Obesity, unspecified; Z68.41 Body mass index [BMI] 40.0-44.9, adult; Z98.890 Other specified postprocedural states; Z79.899 Other long term (current) drug therapy

== ENCOUNTER → 2020-08-10 | Outpatient (CLI) | payer BC ==
--- NOTE | 2020-08-11 14:43 | BD ---
EXAMINATION TYPE: Axial Bone Density DATE OF EXAM: 08/10/2020 COMPARISON: NONE CLINICAL HISTORY: Postmenopausal Height: 5 FT 2 1/2 IN Weight: 238 FRAX RISK QUESTIONS: Alcohol (3 or more units per day): NO Family History (Parent hip fracture): NO Glucocorticoids (More than 3mos): NO (Ex: prednisone, prednisolone, methylprednisolone, dexamethasone, and hydrocortisone). History of Fracture in Adulthood: NO Secondary Osteoporosis: 1. Type 1 Diabetes: NO 2. Hyperthyroidism: NO 3. Menopause before 45: NO 4. Malnutrition: NO 5. Chronic liver disease: NO Rheumatoid Arthritis: NO Current Tobacco Use: NO RISK FACTORS HISTORY OF: Surgery to Spine/Hip(right/left)/Wrist (right/left): NO Family History of Osteoporosis: YES Active: YES Diet low in dairy products/other sources of calcium: NO Postmenopausal woman: MID 50'S Take estrogen and/or progesterone medications: NO Lost more than 2 inches in height since high school: NO MEDICATIONS: Additional Medications: HAPPY PMS CREAM ,ROSUVASTATIN, WELLBUTRIN, AMLODIPINE, CLARITIN Additional History: EXAM MEASUREMENTS: Bone mineral densitometry was performed using the [employer] System. Bone mineral density as measured about the Lumbar spine is: ----- L1-L4(G/cm2): 1.277 T Score Values are as follows: ----- L2: -0.2 ----- L3: 1.8 ----- L4: 1.3 ----- L1-L4: 0.8 BASELINE Bone mineral density about the R hip (g/cm2): 0.914 Bone mineral density about the L hip (g/cm2): 1.006 T Score values are as follows: -----R Neck: -0.9 -----L Neck: -0.2 -----R Total: -0.9 -----L Total: -0.3 BASELINE IMPRESSION: Normal (Values between +1 and -1 indicate normal bone mass). Consider repeating this study in 5 year s or sooner if there is some new clinical indication. NOTE: T-SCORE=SD OF THE YOUNG ADULT MEAN.
== END | disposition home or self-care (01) ==
LOC: RADBDWWP 13:18
PROVIDERS: ATTEND Family Medicine
DX: Z13.820 Encounter for screening for osteoporosis (principal); Z78.0 Asymptomatic menopausal state
CPT/HCPCS: 77080

== ENCOUNTER → 2020-10-20 | Outpatient (CLI) | payer BC ==
[2020-10-20 08:10] VITALS: BP 127/92; PULSE 68; RESP 18; TEMP 97.6
--- NOTE | 2020-10-20 08:59 | P.PN ---
Progress Note - Text Progress Note Date: 10/20/20 Chief Complaint: Bilateral breast pain which started about 4 weeks ago. HPI: This is a 60-year-old with an LMP of 2015. The patient states she started having left breast pain about 1 month ago. Soon after that started she started also noticing pain in the right breast. Now, she can feel the pains on both sides. She denies breast,. She has been swimming more in the summer and she does use the pectoral muscles when she swims since she likes to do the breast stroke. She denies nipple discharge or feeling a mass in the breast. She does drink 1 cup of coffee per day and usually does not drink much caffeine- containing soda. She does eat chocolate. She has been under great amounts of stress related to her parents who both have dementia and work. She states the Covid pandemic and any of the world events seem to cause a lot of stress for her. She has been undergoing physical therapy for neck problems and was told that a muscle in her neck is very tight. She was last seen for her annual examination with mammogram on 12/23/2019. Her mammogram was benign at that time. Her weight has been fluctuating. Since her December appointment, she has gained 11 pounds. She says that this is actually down from more recently when she was up to 260 pounds. She knows she has not been eating the best and says she Bleeds too much at nighttime. She previously was using progesterone cream which she started many years ago for PMS symptoms. She continued to use it even after the menopause up until about 3 weeks ago. She denies any postmenopausal bleeding. ROS: She denies respiratory or cardiac problems. GI: Some constipation and she moves her bowels about every other day. PE: Blood pressure: 127/92, Height: 5 feet 2-1/2 inches, Weight: 243 pounds, Temperature: 97.6, Pulse: 68, pulse oximeter 98%. This is a well developed, well nourished, heavyset, white female who is alert and orientedx3, in no acute distress. Breasts: Breasts appear symmetric with normal nipples without inversion. There is no nipple discharge. There are no palpable breast masses, however, there is generalized mild tenderness in both breasts. There is no focal areas of greater tenderness. Axillary exam: Nontender and there are no palpable masses. Impression: 1. Bilateral mastodynia with generalized tenderness on exam today and no palpable masses. 2. Benign mammogram on 12/23/2019. 3. Significant weight fluctuations and 11 pound net gain since December. This is probably related to variable eating habits and changes in her exercise and activities. Plan: 1. At this time I do not feel any imaging studies are necessary. 2. I have reassured the patient that the pains are not likely to be caused by any type of breast cancer or precancerous type of change. 3. I have recommended that she try to gradually decrease caffeine and chocolate intake since these things may make the breast more sensitive. 4. She will try to pay attention to things she ingests to see if anything is related to greater breast sensitivity. She can try using a small amount of the progesterone cream on a regular basis for the upcoming 2 weeks to see if this is helpful for the breast tenderness and pain. I recommended that she then gradually wean off of it. She was instructed to call if she has any vaginal bleeding, nipple discharge, or abnormal breast findings. 5. I have stressed the importance of trying to live a healthy life with good nutrition and regular exercise. She states she has not been walking like she was earlier this summer. We have discussed ways of trying to reduce stress levels in her life. I have also stressed the importance of making herself a priority since she has been taking much time to take care of her parents are both have dementia. 6. A booklet on breast pain was given to the patient. 7. She will return in approximately 2-3 months for her annual well woman examination and for reevaluation. She'll call she has any questions or problems. Time spent with the patient: 30 minutes
== END | disposition home or self-care (01) ==
LOC: WWCWWP 07:44
PROVIDERS: ATTEND Obstetrics & Gynecology
DX: Z53.9 Procedure and treatment not carried out, unspecified reason (principal)

== ENCOUNTER → 2020-11-18 | Outpatient (CLI) | payer BC ==
--- NOTE | 2020-11-18 18:08 | SFUN ---
SLEEP CENTER FOLLOW UP NOTE DATE OF SERVICE: 11/18/2020 INTERVAL HISTORY: A 60-year-old lady has been followed in Sleep Center for treatment of obstructive sleep apnea-hypopnea syndrome. Patient continued to use her CPAP equipment. No problems with the machine. No problem with equipment. [place] Sleepiness Scale today is 4, which is normal. I checked the CPAP unit. No air filter in the machine. Automatic pressure 6-12, average 9.7. During the previous visit, I increased the pressure in the machine because apnea-hypopnea index was increased. Usage is 23/30 nights. Average 5.1 hours per night. Leak is 18 L/minute, which is borderline. Apnea-hypopnea index 4.3, which is acceptable, less than 5. Previously it was 11.9. MEDICATIONS: Amlodipine 10-5 mg once a day, ipratropium 150 mg once a day, loratadine 10 mg once a day, 200 mg once a day, aspirin 81 mg once a day also Rosuvastatin 20 mg once a day. PHYSICAL EXAMINATION: Patient in no distress. BP 123/82, HR 55, RR 15, height 5 feet 3 inches, weight 241.2. The patient increased her weight on 7 pounds since previous visit. Body mass index 42.6. Temperature 96.8, oxygen saturation at room air 99%. HEENT: PERRLA, EOMI, evaluation of oropharynx moderate localization of soft palate, Mallampati 2 to 3. NECK: Supple, no JVD. Thyroid is not palpable. LUNGS: Clear to percussion and to auscultation. Good air exchange. No wheezing or rhonchi. HEART: S1, S2 regular. No murmurs, gallops, or rubs. ABDOMEN: Soft and nontender. Bowel sounds are present. No organomegaly appreciated. Obese. EXTREMITIES: No clubbing or cyanosis. TIRE GROOVER: Awake, alert, and oriented X3. Cranial nerves 2 to 7 intact. There is no fasciculation or atrophy. noted. No focal deficits observed. IMPRESSION: 1. Obstructive sleep apnea-hypopnea syndrome, normalization of respirations after pressure was increased during the previous visit. Normal respiration on CPAP presently. 2. Obesity patient increased weight on 7 pounds. Body mass index 42.6. 3. Hypertension. 4. Hyperlipidemia. 5. History of asthma. 6. Status post dilatation and curettage. PLAN: 1. Patient will continue to use PAP equipment every night for the whole night. 2. Sleep hygiene with regular time in bed for at least 7-1/2 to 8 hours. 3. Precautions related to driving. No driving if feeling sleepiness. 4. I will maintain all necessary prescription for PAP supplies including mask, tube, filters. 5. Watching weight. 6. Follow-up visit in 6 months or earlier if patient has any problems. Thank you very much for allowing me to participate in the management of your patient. Enzo Benitez MD, PhD, FAASM Diplomat of [place] Board of Medical Specialties Sleep Medicine Board of [place] Board of Internal Medicine Intermediate Designer of [facility] [place] MMODL / IJN: [id number] /
== END ==
LOC: SLEEP 14:36
PROVIDERS: ATTEND Internal Medicine
DX: G47.33 Obstructive sleep apnea (adult) (pediatric) (principal); E66.9 Obesity, unspecified; Z68.41 Body mass index [BMI] 40.0-44.9, adult; I10 Essential (primary) hypertension; E78.5 Hyperlipidemia, unspecified

== ENCOUNTER → 2020-12-31 | Outpatient (CLI) | payer BC | END | disposition home or self-care (01) | LOC: LABWHC1 12:17 | PROVIDERS: ATTEND Family Medicine | DX: J06.9 Acute upper respiratory infection, unspecified (principal) | CPT/HCPCS: 87502; 87635; C9803 ==

== ENCOUNTER → 2021-01-11 | Outpatient (CLI) | payer BC ==
[2021-01-11 08:47] VITALS: BP 132/85; PULSE 71; TEMP 97.8
--- NOTE | 2021-01-11 09:44 | P.HPOB ---
History of Present Illness H&P Date: 01/11/21 Chief Complaint: The patient is here for her routine gynecologic exam and ma mmogram. This is a 60-year-old with an LMP of 2014. The patient has been experiencing some vulvar and perianal itching over the past few weeks. This morning she had moderate left perianal itching, but it can be anywhere in the genital region. She denies vaginal discharge or vaginal odor. She has been treated for intertrigo at different areas of her body by her business services sales representative. Review of Systems The patient has gained 8 pounds over the last year. She denies respiratory, cardiac, or G.I. problems. She previously was experiencing some constipation but this has improved with increased fiber and use of a probiotic. Past Medical History Past Medical History: Coronary Artery Disease (CAD), GERD/Reflux, Hyperlipidemi a, Hypertension, Skin Disorder, Sleep Apnea/CPAP/BIPAP Additional Past Medical History / Comment(s): SEASONAL ALLERGIES, USES C-PAP MACHINE. 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 History of Any Multi-Drug Resistant Organisms: None Reported Past Surgical History: Heart Catheterization Additional Past Surgical History / Comment(s): colonoscopy 2019(next after 5yr). D&C 2013. Past Anesthesia/Blood Transfusion Reactions: No Reported Reaction Past Psychological History: Anxiety Smoking Status: Former smoker Past Alcohol Use History: Rare (2 per year) Additional Past Alcohol Use History / Comment(s): QUIT SMOKING 2003, SMOKED 1/2 PPD, SMOKED 20 YEARS. Past Drug Use History: None Reported Additional History: She is single and has been with her boyfriend since 2007. They live separately, but spend much time together on the weekends. 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 - Past Family History Father Family Medical History: Coronary Artery Disease (CAD), Dementia Mother Family Medical History: CVA/TIA, Dementia Brother(s) Family Medical History: CVA/TIA Medications and Allergies Home Medications Medication Instructions Recorded Confirmed Type Rosuvastatin Calcium [Crestor] 20 mg PO HS 07/24/17 01/11/21 History buPROPion HCL [Wellbutrin SR] 150 mg PO DAILY 07/24/17 01/11/21 History Cholecalciferol (Vitamin D3) 2,000 unit PO DAILY 10/01/18 01/11/21 History [Vitamin D3] Loratadine [Claritin] 10 mg PO DAILY 10/01/18 01/11/21 History Aspirin [Adult Low Dose Aspirin EC] 81 mg PO HS 12/10/18 01/11/21 History Multivitamins, Thera [Multivitamin 1 tab PO DAILY 12/10/18 01/11/21 History (formulary)] Ubidecarenone [Co Q-10] 100 mg PO BID 12/10/18 01/11/21 History amLODIPine BESYLATE/BENAZEPRIL 1 each PO DAILY 12/10/18 01/11/21 History [amLODIPine BESYLATE/BENAZEPRIL 5-10 MG] Meclizine [Antivert] 12.5 mg PO Q8HR PRN 12/23/19 01/11/21 History Bifidobacterium Infantis [Align] 4 mg PO DAILY 01/11/21 01/11/21 History Allergies Allergy/AdvReac Type Severity Reaction Status Date / Time latex Allergy red skin Verified 01/11/21 08:39 Penicillins AdvReac Nausea & Verified 01/11/21 08:39 Vomiting & Diarrhea Exam Vital Signs Temp Pulse BP Pulse Ox 01/11/21 08:42 97.8 F 71 132/85 100 Intake and Output 01/10/21 01/11/21 01/11/21 22:59 06:59 14:59 Other: Weight 108.862 kg Height 5 feet 3-1/2 inches, weight 240 pounds, BMI 41.8. This is a well-developed well-nourished heavyset white female who is alert and oriented times 3 in no acute distress. HEENT: Within normal limits. NECK: Supple without mass or thyromegaly. CHEST AND LUNGS: Clear to auscultation. HEART: Regular rate and rhythm. BREASTS: Are without mass or discharge. AXILLARY EXAM: Negative for adenopathy. BACK: Negative for CVA tenderness. ABDOMEN: Soft, nontender, without palpable masses. PELVIC EXAM: External genitalia reveals mild generalized erythema without pallor or focal lesions. There is also mild erythema of the perineum and perianal are as. The perianal area has slight pallor with a discrete border. There is slightly more erythema in the left perianal area. Cervix and vagina appear normal with mild atrophy. There is no unusual discharge. There is no vaginal odor noted. There is no evidence of prolapse. The uterus is midposition, nongravid size and nontender. There are no palpable adnexal masses or tenderness. RECTAL EXAM: Rectovaginal exam is negative for mass or tenderness and is negative for occult blood. EXTREMITIES: Nontender. IMPRESSION: 1. 60-year-old menopausal female with recent vulvar and perianal pruritus with evidence of mild inflammation in these areas. There is also mild pallor in the perianal areas which may indicate signs of mild lichen sclerosis. Differential diagnosis will also include candidate vaginitis with vulvitis, or nonspecific perianal and dermatitis. 2. Improvement of bilateral mastodynia which she was seen for 2-3 months ago. PLAN: 1. Pap smear was deferred since she had a negative Pap smear co-test on 01/07/2020. 2. Self breast awareness was discussed with the patient. We have also discussed symptoms associated with inflammatory breast cancer. 3. Screening mammogram will be done today. 4. Affirm vaginitis panel was obtained from the vagina. 5. Kenalog 0.1% cream twice a day as needed for vulvar and perianal pruritus. The electronic prescription will be sent to [facility] on [facility]. 6.Osteoporosis prevention was discussed. I have stressed the importance of adequate calcium, vitamin D and regular exercise. Recommended amounts of calcium and vitamin D were also discussed. 7. She has completed her Covid vaccination series. 8. She was advised to return in one year for her annual well woman exam and as needed.
== END | disposition home or self-care (01) ==
LOC: WWCWWP 08:32
PROVIDERS: ATTEND Obstetrics & Gynecology
DX: Z12.31 Encounter for screening mammogram for malignant neoplasm of breast (principal)
CPT/HCPCS: 77063; 77067

== ENCOUNTER → 2021-05-16 | Outpatient (CLI) | payer BC ==
--- NOTE | 2021-05-17 03:08 | MR ---
EXAMINATION TYPE: MR orbits wo/w con DATE OF EXAM: 05/16/2021 COMPARISON: 09/10/2017 HISTORY: Visual disturbances, eyes twitching for several months, history of eyelid surgery. CONTRAST: Standard multiplanar, multisequence MRI departmental protocol images were obtained without contrast a nd with 11 mL intravenous Gadavist gadolinium contrast. Exam concentrated on the orbits. There is no evidence of retro-orbital mass. The globes are symmetric . Corpus callosum appears normal. Sella turcica appears normal. Optic chiasm appears normal. The cont rast images show no pathologic enhancement. Ventricles have normal size. There is no mass effect or m idline shift. There is no sign of intracranial hemorrhage. Brainstem is intact. The internal auditory canals appear normal. Pituitary stalk is in the midline. IMPRESSION: Negative MR scan of the orbits. No adverse change compared to the old exam.
== END | disposition home or self-care (01) ==
LOC: RADMRIMAIN 19:25
PROVIDERS: ATTEND Ophthalmology
DX: H53.19 Other subjective visual disturbances (principal)
CPT/HCPCS: 70543; A9585

== ENCOUNTER → 2021-06-02 | Outpatient (CLI) | payer BC ==
--- NOTE | 2021-06-02 18:48 | SFUN ---
SLEEP CENTER FOLLOW UP NOTE DATE OF SERVICE: 06/02/2021 This 61-year-old lady has been followed in Sleep Center for treatment of obstructive sleep apnea-hypopnea syndrome. The patient continues to use her CPAP equipment most of the nights, does not complain of any problems related to the machine. She is getting her CPAP supplies on time. [place] Sleepiness Scale today is 6. I checked her CPAP unit. Range of the pressure is 6 to 12, average pressure 9.4. Usage is 24/30 nights and 17/30 nights for more than 4 hours, average 5 hours per night. Leak is 14 L/minute, which is borderline. Apnea-hypopnea index is 3.6, which is normal. MEDICATIONS: 1. Amlodipine/benazepril 5/10 mg once a day. 2. Claritin 10 mg once a day. 3. Rosuvastatin 20 mg once a day. 4. Aspirin 81 mg once a day. PHYSICAL EXAMINATION: GENERAL: Pleasant patient in no distress. VITAL SIGNS: BP 123/85, HR 64, RR 16, weight 252 pounds, temperature 97.5, oxygen saturation at room air 95%. HEENT: PERRLA, EOMI, evaluation of oropharynx showed tongue protrudes midline. Moderately low position of soft palate; Mallampati II to III. NECK: Supple, no JVD. Thyroid is not palpable. LUNGS: Clear to percussion and to auscultation. Good air exchange. No wheezing or rhonchi. HEART: S1, S2 regular. No murmurs, gallops, or rubs. ABDOMEN: Obese. EXTREMITIES: No clubbing or cyanosis. GLUING MACHINE FEEDER: Awake, alert, and oriented X3. Cranial nerves 2 to 7 intact. There is no fasciculation or atrophy. noted. No focal deficits observed. IMPRESSION: 1. Obstructive sleep apnea-hypopnea syndrome. The patient demonstrated borderline compliance with treatment. Normal aspiration on CPAP. 2. Obesity. Patient's weight increased by 11 pounds compared with the previous visit. 3. Hypertension. 4. Hyperlipidemia. 5. History of asthma. 6. Status post dilatation and curettage. PLAN: 1. Patient will continue to use PAP equipment every night for the whole night. 2. Sleep hygiene with regular time in bed for at least 7-1/2 to 8 hours. 3. Precautions related to driving. No driving if feeling sleepiness. 4. I will maintain all necessary prescription for PAP supplies including mask, tube, filters. 5. Watching weight. 6. Follow-up visit in 6 months or earlier if patient has any problems. Thank you very much for allowing me to participate in the management of your patient. Sincerely, Enzo Benitez MD, PhD, FAASM Diplomat of [place] Board of Medical Specialties Sleep Medicine Board of [place] Board of Internal Medicine Editor Trade [facility] of [facility] MMODL / MIGUELN: [id number] /
== END | disposition home or self-care (01) ==
LOC: SLEEP 16:28
PROVIDERS: ATTEND Internal Medicine
DX: G47.33 Obstructive sleep apnea (adult) (pediatric) (principal); E66.9 Obesity, unspecified; I10 Essential (primary) hypertension; E78.5 Hyperlipidemia, unspecified; Z87.09 Personal history of other diseases of the respiratory system

== ENCOUNTER → 2022-01-26 | Outpatient (CLI) | payer BC ==
--- NOTE | 2022-01-26 16:36 | P.PN ---
Subjective DATE: 01/26/2022 FOLLOW UP VISIT. Patient with obstructive sleep apnea hypopnea syndrome return to sleep center for follow-up visit. Information from previous visit have been reviewed. Patient is using PAP equipment every night for the whole night, getting PAP supplies in time. The patient does not have significant problems with the mask, PAP unit and humidification. [place] sleepiness scale is 3, which is normal. I checked information from PAP unit. PAP unit pressure 6-12, average 8.8 cm H2O. Usage is 90% and 70 % for more then 4 hours, average 3.7 hours per night. Leak is 19 l/m, which is in acceptable range. Apnea Hypopnea Index is 3.1, which is normal. MEDICATIONS:1. Amlodipine/benazepril 5-10 mg once a day 2. Triamteren 3. Rosuvastatin 20 mg once a day 4. Aspirin 81 mg once a day 5. Claritin 10 mg once a day During physical exam: GENERAL: A pleasant patient without any distress. VITAL SIGNS: BP 127/83, HR 66, RR 16 , weight 248, body mass index 45.3, temperature 98.2, oxygen saturation at room air 99 % . HEENT: PERRLA, EOMI.low position of soft palate, Mallapati2-3 . NECK: Supple. No JVD. LUNGS: Clear to percussion and to auscultation. Good air exchange. No wheezing or rhonchi. HEART: S1, S2 regular. ABDOMEN: Soft and nontender. Obese EXTREMITIES: No clubbing or cyanosis. BASEBALL SCOUT: Awake, alert, and oriented x3. No focal deficit. Impressions: 1. Obstructive sleep apnea-hypopnea syndrome. Patient demonstrated good compliance with treatment, benefiting from treatment. 2. Obesity body mass index 45.3. 3. Hypertension. 4. Hyperlipidemia. 5. History of asthma. 6. Status post D&C. Plan: 1. Continue using PAP equipment every night for the whole night. 2. To change air filter at least 1-2 times per month. 3. PAP unit should stay lower then position of the head. 4. Advised patient to remove all remaining water from humidifier canister daily and make it dry after each usage. Refill canister with fresh distilled water before each usage. 5. Sleep hygiene with regular time in bed for at least 8 hours. 6. Precautions related to driving. No driving if feel any sleepiness. 7. I will maintain prescription for PAP supplies including mask, tube, filters. 8. Follow up visit in 6 months or earlier if patient has any problems. 9. Watching and losing weight. Thank you very much for allowing me to participate in the management of your patient. Enzo Benitez MD, PhD, FAASM. Diplomat of [place] Board of Sleep Medicine, Sleep Medicine Board by [place] Board of Internal Medicine Chemistry Quality Control Technician of [facility] [place]
== END ==
LOC: SLEEP 16:13
PROVIDERS: ATTEND Internal Medicine
DX: O03.89 Complete or unspecified spontaneous abortion with other complications (principal); G47.33 Obstructive sleep apnea (adult) (pediatric); Z99.89 Dependence on other enabling machines and devices; I10 Essential (primary) hypertension; E78.5 Hyperlipidemia, unspecified; E66.9 Obesity, unspecified; Z68.41 Body mass index [BMI] 40.0-44.9, adult; Z87.09 Personal history of other diseases of the respiratory system; Z88.0 Allergy status to penicillin; Z91.040 Latex allergy status; Z87.891 Personal history of nicotine dependence
CPT/HCPCS: 99212

== ENCOUNTER → 2022-01-31 | Outpatient (CLI) | payer BC ==
[2022-01-31 12:34] VITALS: BP 112/77; PULSE 62; RESP 17; TEMP 97.8
--- NOTE | 2022-01-31 13:25 | P.HPOB ---
History of Present Illness H&P Date: 01/31/22 Chief Complaint: The patient is here for her routine gynecologic exam and ma mmogram. This is a 61-year-old with an LMP of 2014. The patient is still using Kenalog cream infrequently for vulvar pruritus. She still has occasional vulvar or perianal pruritus. The cream does seem to be helpful. She is otherwise without gynecologic complaints and denies any postmenopausal bleeding. Review of Systems The patient has gained 10 pounds over the last year. She denies respiratory, cardiac, or G.I. problems. Skin: She has a dry patch of skin at the 12 o'clock position of the left areola. Past Medical History Past Medical History: Coronary Artery Disease (CAD), GERD/Reflux, Hyperlipidemia, Hypertension, Skin Disorder, Sleep Apnea/CPAP/BIPAP Additional Past Medical History / Comment(s): SEASONAL ALLERGIES, USES C-PAP MACHINE. Mnire's disease. 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 History of Any Multi-Drug Resistant Organisms: None Reported Past Surgical History: Heart Catheterization Additional Past Surgical History / Comment(s): colonoscopy 2019(next after 5yr). D&C 2014. Past Anesthesia/Blood Transfusion Reactions: No Reported Reaction Past Psychological History: Anxiety Smoking Status: Former smoker Past Alcohol Use History: Rare (One per year) Additional Past Alcohol Use History / Comment(s): QUIT SMOKING 2003, SMOKED 1/2 PPD, SMOKED 20 YEARS. Past Drug Use History: None Reported Additional History: She is single and has been with her boyfriend since 2007. They live separately, but spend much time together on the weekends. 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 - Past Family History Father Family Medical History: Coronary Artery Disease (CAD), CVA/TIA, Dementia Mother Family Medical History: CVA/TIA, Dementia Brother(s) Family Medical History: CVA/TIA Medications and Allergies Home Medications Medication Instructions Recorded Confirmed Type Rosuvastatin Calcium [Crestor] 20 mg PO HS 07/24/17 01/31/22 History Cholecalciferol (Vitamin D3) 2,000 unit PO DAILY 10/01/18 01/31/22 History [Vitamin D3] Loratadine [Claritin] 10 mg PO DAILY 10/01/18 01/31/22 History Aspirin [Adult Low Dose Aspirin EC] 81 mg PO HS 12/10/18 01/31/22 History Multivitamins, Thera [Multivitamin 1 tab PO DAILY 12/10/18 01/31/22 History (formulary)] Ubidecarenone [Co Q-10] 100 mg PO BID 12/10/18 01/31/22 History amLODIPine BESYLATE/BENAZEPRIL 1 each PO DAILY 12/10/18 01/31/22 History [amLODIPine BESYLATE/BENAZEPRIL 5-10 MG] Triamcinolone 0.1% Lotion [Kenalog 1 applic TOPICAL BID PRN #30 g 01/11/21 01/31/22 Rx 0.1% Lotion] Triamterene 50 mg PO DAILY 01/31/22 01/31/22 History Allergies Allergy/AdvReac Type Severity Reaction Status Date / Time latex Allergy red skin Verified 01/31/22 12:28 Penicillins AdvReac Nausea & Verified 01/31/22 12:28 Vomiting & Diarrhea Exam Vital Signs Temp Pulse Resp BP Pulse Ox 01/31/22 12:31 97.8 F 62 17 112/77 98 Intake and Output 01/30/22 01/31/22 01/31/22 22:59 06:59 14:59 Other: Weight 113.398 kg Height 5 feet 2 inches, weight 250 pounds, BMI 45.7. This is a well-developed well-nourished heavyset white female who is alert and oriented times 3 in no acute distress. HEENT: Within normal limits. NECK: Supple without mass or thyromegaly. CHEST AND LUNGS: Clear to auscultation. HEART: Regular rate and rhythm. BREASTS: Are without mass or discharge. AXILLARY EXAM: Negative for adenopathy. BACK: Negative for CVA tenderness. ABDOMEN: Soft, nontender, without palpable masses. PELVIC EXAM: External genitalia reveals mild atrophy with slight generalized erythema. The erythema extends also to the perineum and perianal areas with a "hourglass" type distribution. There are no focal lesions and no significant pallor. There is no vulvar ulceration. Cervix and vagina appear normal with mild atrophy. There is no unusual discharge. There is no evidence of prolapse. The uterus is midposition, nongravid size and nontender. There are no palpable a dnexal masses or tenderness. RECTAL EXAM: Rectovaginal exam is negative for mass or tenderness and is negative for occult blood. EXTREMITIES: Nontender. IMPRESSION: 1. 61-year-old menopausal female with chronic vulvitis extending to the perianal areas. This may represent early lichen sclerosis of the vulva based on its hourglass type distribution. PLAN: 1. Pap smear was deferred since she had a negative Pap smear cotest on 01/07/2020. 2. Self breast awareness was discussed with the patient. We have also discussed symptoms associated with inflammatory breast cancer. 3. Screening mammogram will be done today. 4. She will continue to use Kenalog 0.1% cream twice a day as needed for vulvar pruritus. She can also use this and the perianal area as needed. She was instructed to call if she is having worsening symptoms or problems. The electronic prescription will be sent to [facility] pharmacy on . 5. Osteoporosis prevention was discussed. I have stressed the importance of adequate calcium, vitamin D and regular exercise. Recommended amounts of calcium and vitamin D were also discussed. I recommended bone density testing based on her age. The order slip was given to the patient for this. 6. She has completed her Covid vaccination series and has had 4 additional boosters. She has also had Covid in the past. 7. She was advised to return in one year for her annual well woman exam and as needed.
--- NOTE | 2022-02-01 17:52 | MM ---
Reason for Exam: Screening (asymptomatic). Last mammogram was performed 1 year(s) and 1 month(s) ago. Patient History: Menarche at age 13. Patient has no children. Postmenopausal. Progesterone for 6 years from age 44 until age 60. Risk Values: Grace 5 year model risk: 1.6%. NCI Lifetime model risk: 8.1%. Prior Study Comparison: 06/01/2015 Bilateral Screening Mammogram, [facility]. 06/09/2015 Left Diagnostic Mammogram, [facility]. 07/11/2016 Bilateral Screening Mammogram, [facility]. 07/24/2017 Bilateral Screening Mammogram, [facility]. 10/01/2018 Bilateral Screening Mammogram, [facility]. 12/23/2019 Bilateral Screening Mammogram, [facility]. 01/11/2021 Bilateral Screening Mammogram, [facility]. Tissue Density: There are scattered fibroglandular densities. Findings: Analyzed By CAD. There is stable. Some focal asymmetries in the upper outer aspect mid-breast, unchanged from comparison. No suspicious groups of microcalcifications, spiculated or lobular masses, architectural distortion or other secondary signs of malignancy are mammographically apparent. Overall Assessment: Benign, BI-RAD 2 Management: Screening Mammogram of both breasts in 1 year. A negative mammogram report should not preclude additional follow up of suspicious palpable abnormalities. Patient should continue monthly self breast exam. A clinical breast exam by your physician is recommended on an annual basis and results should be correlated with mammographic findings. Electronically signed and approved by: Prudencio Chin D.O. Radiologis
== END ==
LOC: WWCWWP 12:17
PROVIDERS: ATTEND Obstetrics & Gynecology
DX: Z12.31 Encounter for screening mammogram for malignant neoplasm of breast (principal); Z01.419 Encounter for gynecological examination (general) (routine) without abnormal findings; I10 Essential (primary) hypertension; I25.10 Atherosclerotic heart disease of native coronary artery without angina pectoris; K21.9 Gastro-esophageal reflux disease without esophagitis; E78.5 Hyperlipidemia, unspecified; Z91.040 Latex allergy status; Z88.0 Allergy status to penicillin; Z87.891 Personal history of nicotine dependence
CPT/HCPCS: 77063; 77067

== ENCOUNTER → 2022-01-31 | Outpatient (CLI) | payer BC ==
[2022-01-31 14:35] LABS: HCT 43.1 % (37.2-46.3); HGB 14.8 g/dL (12.0-15.0); MCH 29.6 pg (27.0-32.0); MCHC 34.3 g/dL (32.0-37.0); MCV 86.2 fL (80.0-97.0); Mean Platelet Volume 10.4 fL (9.5-12.2); NRBC Per 100 WBC 0 /100 WBCS (0.0-0.0); Platelet Count 311 X 10*3/uL (140-440); RDW 13.7 % (11.5-14.5)
[2022-01-31 14:57] LABS: Progesterone 0.1 ng/mL
[2022-01-31 14:58] LABS: ALT 25 U/L (8-44); AST 23 U/L (13-35); African American GFR (CKD) 84.5 (60.0-200.0); Albumin 4.7 g/dL (3.8-4.9); Alkaline Phosphatase 76 U/L (41-126); BUN/Creat Ratio 21.73 Ratio (12.00-20.00); Blood Urea Nitrogen 18.8 mg/dL (9.0-27.0); Calcium 9.7 mg/dL (8.7-10.3); Carbon Dioxide 26.2 mmol/L (20.0-27.5); Chloride 101 mmol/L (96-109); Chol/HDL Ratio 2.42 Ratio; Globulin 2.2 g/dL (1.6-3.3); Glucose 97 mg/dL (70-110); Non-African American GFR(CKD) 72.9 (60.0-200.0); Potassium 4.4 mmol/L (3.5-5.5); Sodium 140 mmol/L (135-145); Total Protein 6.9 g/dL (6.2-8.2); VLDL Calculation 11.16 mg/dL (5.00-40.00)
[2022-01-31 18:57] LABS: DHEA Sulfate 43.2 ug/dL (26.0-430.0)
[2022-01-31 23:45] LABS: DHEA Sulfate 44.1 ug/dL (26.0-430.0); Progesterone 0.1 ng/mL
[2022-02-01 15:44] LABS: Estrogens Total 72 pg/mL
[2022-02-01 15:44] LABS: Estrogens Total 131 pg/mL
== END | disposition home or self-care (01) ==
LOC: LABWHC1 07:27
PROVIDERS: ATTEND Family Medicine
DX: I10 Essential (primary) hypertension (principal); E78.5 Hyperlipidemia, unspecified; F41.1 Generalized anxiety disorder
CPT/HCPCS: 36415; 80053; 80061; 81291; 82533; 82627; 82672; 83036; 84144; 84443; 85027

== ENCOUNTER → 2022-08-31 | Outpatient (CLI) | payer BC ==
--- NOTE | 2022-08-31 11:28 | P.PN ---
Subjective DATE: 08/31/2022 FOLLOW UP VISIT. Thank you very much for allowing me to participate in the management of your patient.DATE: 08/31/2022 FOLLOW UP VISIT. Patient with obstructive sleep apnea hypopnea syndrome return to sleep center for follow-up visit. Information from previous visit have been reviewed. Patient is using PAP equipment every night for the whole night, getting PAP supplies in time. The patient does not have significant problems with the mask, PAP unit and humidification. [place] sleepiness scale is 4, which is normal. I checked information from PAP unit. PAP unit pressure 6-12, average 8.5 cm H2O. Usage is 70 % for more then 4 hours, average 4 hours per night. Leak is 12 l/m, which is in acceptable range. Apnea Hypopnea Index is 1.9, which is normal. MEDICATIONS:1. Amlodipine/benazepril 5/10 mg once a day 2. Triamterene/simdmmvpwwkbrhzucxr048/2 milligrams once a day 3. Rosuvastatin 20 mg once a day 4 loratidine 10 mg once a day During physical exam: GENERAL: A pleasant patient without any distress. VITAL SIGNS: BP 114/76, HR 61, RR 12 , weight 257, temperature 97.4, oxygen saturation at room air 96 % . HEENT: PERRLA, EOMI.low position of soft palate, Mallapati 2-3 . NECK: Supple. No JVD. LUNGS: Clear to percussion and to auscultation. Good air exchange. No wheezing or rhonchi. HEART: S1, S2 regular. ABDOMEN: Soft and nontender. Obese EXTREMITIES: No clubbing or cyanosis. TACK MAKER: Awake, alert, and oriented x3. No focal deficit. Impressions: 1. Obstructive sleep apnea-hypopnea syndrome. Patient demonstrated borderline compliance with treatment, benefiting from treatment. 2. Obesity, BMI 46.2, patient increased his weight on 8 pounds comparing to the previous visit. 3. Hypertension. 4. Hyperlipidemia. 5. History of asthma. 6. Status post D&C. Plan: 1. Continue using PAP equipment every night for the whole night. 2. To change air filter at least 1-2 times per month. 3. PAP unit should stay lower then position of the head. 4. Advised patient to remove all remaining water from humidifier canister daily and make it dry after each usage. Refill canister with fresh distilled water before each usage. 5. Sleep hygiene with regular time in bed for at least 8 hours. 6. Precautions related to driving. No driving if feel any sleepiness. 7. I will maintain prescription for PAP supplies including mask, tube, filters. 8. Watching and losing weight. 9. Follow up visit in 6 months or earlier if patient has any problems. Enzo Benitez MD, PhD, FAASM. Diplomat of [place] [employer], Sleep Medicine Board by [place] [employer] Inspector Screen Printing of [facility]
== END ==
LOC: 3 N SLEEP 10:59
PROVIDERS: ATTEND Internal Medicine
DX: G47.33 Obstructive sleep apnea (adult) (pediatric) (principal); E78.5 Hyperlipidemia, unspecified; J45.909 Unspecified asthma, uncomplicated; I10 Essential (primary) hypertension; E66.9 Obesity, unspecified; Z68.42 Body mass index [BMI] 45.0-49.9, adult; Z79.899 Other long term (current) drug therapy; Z88.0 Allergy status to penicillin; Z91.040 Latex allergy status; Z87.891 Personal history of nicotine dependence; Z99.89 Dependence on other enabling machines and devices
CPT/HCPCS: 99212

== ENCOUNTER → 2022-12-26 | Outpatient (CLI) | payer BC ==
[2022-12-26 14:54] VITALS: BP 120/82; PULSE 66; RESP 17; TEMP 98.4
--- NOTE | 2022-12-26 16:46 | P.HPOB ---
History of Present Illness H&P Date: 12/26/22 Chief Complaint: The patient is here for routine gynecologic exam. This is a 62-year-old with an LMP of 2015. She has been noticing left breast pain and tenderness for about 1 month. She states the breast feels tight and this seems to be even more noticeable when she lifts up on the breast. She denies any recent trauma to the breasts and also denies any new exercise regimens. She does not feel any lumps. She does have slight right breast tenderness, but not as significant as the left breast. She denies any postmenopausal bleeding or use of any hormone therapies. She did start using an [id number]-ukmmwgg supplement called Cortisol Block Hacker about 1 month ago and she uses this because of significant stress. She states this was recommended by her PCP. Review of Systems The patient has gained 6 pounds over the last year. She denies respiratory, cardiac, or G.I. problems. Past Medical History Past Medical History: Coronary Artery Disease (CAD), GERD/Reflux, Hyperlipidemia, Hypertension, Skin Disorder, Sleep Apnea/CPAP/BIPAP Additional Past Medical History / Comment(s): SEASONAL ALLERGIES, USES C-PAP MACHINE. Mnire's disease. 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 History of Any Multi-Drug Resistant Organisms: None Reported Past Surgical History: Heart Catheterization Additional Past Surgical History / Comment(s): colonoscopy 2019(next after 5yr). D&C 2013. Past Anesthesia/Blood Transfusion Reactions: No Reported Reaction Past Psychological History: Anxiety Smoking Status: Former smoker Past Alcohol Use History: Rare (1 drink per year.) Additional Past Alcohol Use History / Comment(s): QUIT SMOKING 2003, SMOKED 1/2 PPD, SMOKED 20 YEARS. Past Drug Use History: None Reported Additional History: She is single and has been with her boyfriend since 2007. 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 - Past Family History Father Family Medical History: Coronary Artery Disease (CAD), CVA/TIA, Dementia Mother Family Medical History: CVA/TIA, Dementia Brother(s) Family Medical History: CVA/TIA Medications and Allergies Home Medications Medication Instructions Recorded Confirmed Type Rosuvastatin Calcium [Crestor] 20 mg PO HS 07/24/17 12/26/22 History Cholecalciferol (Vitamin D3) 2,000 unit PO DAILY 10/01/18 12/26/22 History [Vitamin D3] Loratadine [Claritin] 10 mg PO DAILY 10/01/18 12/26/22 History Aspirin [Adult Low Dose Aspirin EC] 81 mg PO HS 12/10/18 12/26/22 History Multivitamins, Thera [Multivitamin 1 tab PO DAILY 12/10/18 12/26/22 History (formulary)] Ubidecarenone [Co Q-10] 100 mg PO BID 12/10/18 12/26/22 History amLODIPine BESYLATE/BENAZEPRIL 1 each PO DAILY 12/10/18 12/26/22 History [amLODIPine BESYLATE/BENAZEPRIL 5-10 MG] Triamcinolone 0.1% Lotion [Kenalog 1 applic TOPICAL BID PRN #30 g 01/31/22 12/26/22 Rx 0.1% Lotion] Triamterene 50 mg PO DAILY 01/31/22 12/26/22 History Ashw/Magn/Phel/Banab/Mar/Thean 1 cap PO DAILY 12/26/22 12/26/22 History [Cortisolv Capsule] Allergies Allergy/AdvReac Type Severity Reaction Status Date / Time latex Allergy red skin Verified 12/26/22 14:32 Penicillins AdvReac Nausea & Verified 12/26/22 14:32 Vomiting & Diarrhea Exam Vital Signs Temp Pulse Resp BP Pulse Ox 12/26/22 14:34 98.4 F 66 17 120/82 98 Intake and Output 12/26/22 12/26/22 12/26/22 06:59 14:59 22:59 Other: Weight 116.12 kg Height 5 feet 2 inches, weight 256 pounds, BMI 46.8. This is a well-developed well-nourished heavyset white female who is alert and oriented times 3 in no acute distress. HEENT: Within normal limits. NECK: Supple without mass or thyromegaly. CHEST AND LUNGS: Clear to auscultation. HEART: Regular rate and rhythm. BREASTS: Are without mass or discharge. There is moderate left breast point tenderness at the 8 o'clock position approximately 4 cm from the areola. There is no erythema. There is no nipple discharge. Right breast is mildly tender throughout the breast. AXILLARY EXAM: Negative for adenopathy. BACK: Negative for CVA tenderness. ABDOMEN: Soft, nontender, without palpable masses. PELVIC EXAM: Normal external genitalia with mild atrophy. Cervix and vagina appear normal mild atrophy. There is no unusual discharge. There is no evidence of prolapse. The uterus is midposition, nongravid size and nontender. There are no palpable adnexal masses or tenderness. Bimanual examination is somewhat limited secondary to her size. RECTAL EXAM: Rectovaginal exam is negative for mass or tenderness and is negative for occult blood. EXTREMITIES: Nontender. IMPRESSION: 1. 62-year-old menopausal female with unremarkable pelvic exam. 2. Mastodynia greater in the left breast with significant point tenderness at the 8 o'clock position of the left breast. There are no palpable masses. PLAN: 1. Pap smear was deferred since she had a negative Pap smear cotest on 01/07/2020. 2. Breast awareness was discussed with the patient. 3. The patient has been scheduled for a diagnostic mammogram on 12/27/2022 in the morning. The order slip was given to the patient for this. We have discussed how many things can make the breast more sensitive including caffeine and chocolate. It is also possible that the vdta-fqj-[id number] supplement that she has been taking for stressed during the past month and may also cause the breasts to be more sensitive. I am not sure of the exact contents of the [id number] supplement she is using for stress and it is described as a proprietary blend. I have recommended that she have a trial off of this supplement and that she try to limit caffeine and chocolate intake. I have reassured her that breast tenderness and is usually not a common symptom of breast cancer, but it is still possible. 4. She was advised to return in one year for her annual well woman exam and as needed.
--- NOTE | 2022-12-27 12:32 | P.PN ---
Progress Note - Text Progress Note Date: 12/27/22 Patient's diagnostic bilateral mammogram done on 12/27/2022 was probably benign with some also medications noted at the floor o'clock position of the left breast magnification views were obtained and there were no clustered microcalcifications identified. These results are typically given to the patient following a diagnostic mammogram. The order slip for a diagnostic left mammogram in 6 months will be mailed to the patient.
== END ==
LOC: WWCWWP 14:19
PROVIDERS: ATTEND Obstetrics & Gynecology
DX: N64.4 Mastodynia (principal); E78.5 Hyperlipidemia, unspecified; I25.10 Atherosclerotic heart disease of native coronary artery without angina pectoris; I10 Essential (primary) hypertension; G47.30 Sleep apnea, unspecified; F41.9 Anxiety disorder, unspecified; K21.9 Gastro-esophageal reflux disease without esophagitis; Z78.0 Asymptomatic menopausal state; Z87.891 Personal history of nicotine dependence; Z91.040 Latex allergy status; Z88.0 Allergy status to penicillin; Z79.899 Other long term (current) drug therapy; Z79.82 Long term (current) use of aspirin

== ENCOUNTER → 2022-12-27 | Outpatient (CLI) | payer BC ==
--- NOTE | 2022-12-27 08:25 | MM ---
Reason for Exam: Clinical finding. Last screening mammogram was performed 11 month(s) ago. Indicated Problems: Pain of the left side (Global) for 2 Month(s) : tenderness on exam. Patient History: Menarche at age 13. Patient has no children. Postmenopausal. Progesterone for 6 years from age 44 until age 60. Risk Values: Grace 5 year model risk: 1.6%. NCI Lifetime model risk: 7.9%. Prior Study Comparison: 07/11/2016 Bilateral Screening Mammogram, [facility]. 10/01/2018 Bilateral Screening Mammogram, [facility]. 01/11/2021 Bilateral Screening Mammogram, [facility]. 01/31/2022 Bilateral MG 3D screening mammo w/cad, [facility]. Tissue Density: There are scattered fibroglandular densities. Findings: Analyzed By CAD. Pattern appears symmetrical. A marker is placed patient's level of pain within the lower inner aspect left breast. No suspicious mammographic abnormality is evident. There are punctate calcifications within the 4:00 posterior position left breast. Magnification views were obtained. Persistent clustered microcalcifications not identified. Precautionary 6 month follow-up vein location views is recommended. Right breast: No suspicious groups of microcalcifications, spiculated or lobular masses, architectural distortion or other secondary signs of malignancy are mammographically apparent. Overall Assessment: Probably benign, BI-RAD 3 Management: Diagnostic Mammogram of the left breast in 6 months. A negative mammogram report should not preclude additional follow up of suspicious palpable abnormalities. Patient should continue monthly self breast exam. A clinical breast exam by your physician is recommended on an annual basis and results should be correlated with mammographic findings. Electronically signed and approved by: Prudencio Chin D.O. Radiologis
== END | disposition home or self-care (01) ==
LOC: RADMAMWWP 07:26
PROVIDERS: ATTEND Obstetrics & Gynecology
DX: N64.4 Mastodynia (principal); R92.323 Mammographic fibroglandular density, bilateral breasts; Z78.0 Asymptomatic menopausal state
CPT/HCPCS: 77062; 77066

== ENCOUNTER → 2023-03-01 | Outpatient (CLI) | payer BC ==
--- NOTE | 2023-03-01 18:29 | P.PN ---
Subjective DATE: 03/01/2023 FOLLOW UP VISIT. Patient with obstructive sleep apnea hypopnea syndrome return to sleep center for follow-up visit. Information from previous visit have been reviewed. Patient is using PAP equipment every night for the whole night, getting PAP supplies in time. The patient does not have significant problems with the mask, PAP unit and humidification. [place] sleepiness scale is 5, which is in normal range. I checked information from PAP unit. PAP unit pressure 6-12, average 10.2 cm H2O. Usage is 100 % for more then 4 hours, average 5.4 hours per night. Leak is 22 l/m, which is in acceptable range. Apnea Hypopnea Index is 5.6, which is slightly increased comparing to the previous visit when it was 1.9. MEDICATIONS:1. Amlodipine/benazepril 5-10 milligrams once a day 2. Loratidine 10 mg once a day 3. Triamteren/hydrochlorothiazide 4. Rosuvastatin 20 mg once a day 5. Aspirin 81 mg once a day During physical exam: GENERAL: A pleasant patient without any distress. VITAL SIGNS: BP 108/75, HR 60, RR 16, weight 248, temperature 98.1, oxygen saturation at room air 96 % . HEENT: PERRLA, EOMI.low position of soft palate, Mallapati 2-3 . NECK: Supple. No JVD. LUNGS: Clear to percussion and to auscultation. Good air exchange. No wheezing or rhonchi. HEART: S1, S2 regular. ABDOMEN: Soft and nontender. Slightly obese EXTREMITIES: No clubbing or cyanosis. ACCOUNT SERVICES ANALYST: Awake, alert, and oriented x3. No focal deficit. Impressions: 1. Obstructive sleep apnea-hypopnea syndrome. Patient demonstrated great compliance with treatment, benefiting from treatment. 2. Obesity, BMI 44.6, patient lost 9 pounds comparing with previous visit. 3. Hypertension. 4. Hyperlipidemia. 5. History of asthma. Plan: 1. Continue using PAP equipment every night for the whole night. 2. To change air filter at least 1-2 times per month. 3. PAP unit should stay lower then position of the head. 4. Advised patient to remove all remaining water from humidifier canister daily and make it dry after each usage. Refill canister with fresh distilled water before each usage. 5. Sleep hygiene with regular time in bed for at least 8 hours. 6. Precautions related to driving. No driving if feel any sleepiness. 7. I will maintain prescription for PAP supplies including mask, tube, filters. 8. Follow up visit in 6 months or earlier if patient has any problems. 9. Watching and losing weight. Thank you very much for allowing me to participate in the management of your patient. Enzo Benitez MD, PhD, FAASM. Diplomat of [place] [employer], Sleep Medicine Board by [place] [employer] Odd Piece Checker of [facility]
== END ==
LOC: 3 N SLEEP 16:04
PROVIDERS: ATTEND Internal Medicine
DX: G47.33 Obstructive sleep apnea (adult) (pediatric) (principal); E66.9 Obesity, unspecified; E78.5 Hyperlipidemia, unspecified; I10 Essential (primary) hypertension; J45.909 Unspecified asthma, uncomplicated; Z68.41 Body mass index [BMI] 40.0-44.9, adult; Z99.89 Dependence on other enabling machines and devices; Z91.040 Latex allergy status; Z88.0 Allergy status to penicillin; Z79.82 Long term (current) use of aspirin; Z87.891 Personal history of nicotine dependence
CPT/HCPCS: 99212

== ENCOUNTER → 2023-05-12 | Outpatient (CLI) | payer BC ==
--- NOTE | 2023-05-15 21:38 | MR ---
EXAMINATION TYPE: MR brain and iac wo/w con DATE OF EXAM: 05/12/2023 COMPARISON: None HISTORY: Dizziness. CONTRAST: Performed utilizing 10 mL intravenous Gadobutrol gadolinium contrast. TECHNIQUE: Multiplanar, multiecho imaging on a 3.0 Lilliana magnet is performed through the brain. Atte ntion is paid to the internal auditory canals with thin section imaging. Postcontrast imaging is per formed through the internal auditory canals. FINDINGS:Craniovertebral junction is normal. The pituitary is normal. Optic chiasm appears unremark able. Diffusion-weighted imaging is performed. No suspicious hyperintensity is present to suggest an acute intracranial infarct or acute ischemic area. Signal within the brain has scattered areas of hyperintensity which are non-specific but could be rel ated to microvascular ischemic changes.. Thin section imaging is performed through the internal auditory canals and cerebellar pontine angles. No cerebellar pontine angle masses are evident. The internal auditory canals appear normal without expansion or erosion. Postcontrast imaging was performed. No suspicious enhancement is evident within the internal audito ry canals or the included portions of the brain. IMPRESSION: 1. No acute intracranial abnormality. 2. No abnormality within the internal auditory canals.
== END | disposition home or self-care (01) ==
LOC: RADMRIMAIN 10:43
PROVIDERS: ATTEND Otolaryngology
DX: D33.3 Benign neoplasm of cranial nerves (principal); R42 Dizziness and giddiness
CPT/HCPCS: 70553; A9585

== ENCOUNTER → 2023-06-28 | Outpatient (CLI) | payer BC ==
--- NOTE | 2023-06-28 10:38 | MM ---
Reason for Exam: Follow-up at short interval from prior study. Last screening mammogram was performed 6 month(s) ago. Patient History: Menarche at age 13. Patient has no children. Postmenopausal. Progesterone for 6 years from age 44 until age 60. Risk Values: Grace 5 year model risk: 1.7%. NCI Lifetime model risk: 7.7%. Prior Study Comparison: 01/11/2021 Bilateral Screening Mammogram, [facility]. 01/31/2022 Bilateral MG 3D screening mammo w/cad, [facility]. 12/27/2022 Bilateral MG 3D diag mammo w/cad [facility], [facility]. Tissue Density: Left: There are scattered areas of fibroglandular density. Findings: Analyzed By CAD. Very faint grouped punctate calcifications posterior lateral left breast redemonstrated and unchanged for 6 months. Ongoing short interval follow-up recommended. Overall Assessment: Probably benign, BI-RAD 3 Management: Diagnostic Mammogram of both breasts in 6 months. For a total one-year follow-up. Recommend CC magnification view at the time of patient's follow-up. Results were given to the patient verbally at the time of exam. Patient should continue monthly self-breast exams. A clinical breast exam by your physician is recommended on an annual basis. This exam should not preclude additional follow-up of suspicious palpable abnormalities. Note on Grace scores and lifetime risk: 1. A Grace score greater than 3% is considered moderate risk. If this is the case, consider specialist referral to assess eligibility for a risk reducing agent. 2. If overall lifetime risk for the development of breast cancer is 20% or higher, the patient may qualify for future screening with alternating mammogram and breast MRI. Electronically signed and approved by: Jose Alberto Everett M.D. Radiologist
== END | disposition home or self-care (01) ==
LOC: RADMAMWWP 09:39
PROVIDERS: ATTEND Obstetrics & Gynecology
DX: R92.322 Mammographic fibroglandular density, left breast (principal)
CPT/HCPCS: 77061; 77065

== ENCOUNTER → 2024-01-01 | Outpatient (CLI) | payer BC ==
--- NOTE | 2024-01-01 14:56 | MM ---
Reason for Exam: Follow-up at short interval from prior study. Last screening mammogram was performed 12 month(s) ago. Patient History: Menarche at age 13. Patient has no children. Postmenopausal. Progesterone for 6 years from age 44 until age 60. Risk Values: Grace 5 year model risk: 1.7%. NCI Lifetime model risk: 7.7%. Prior Study Comparison: 06/09/2015 Left Diagnostic Mammogram, [facility]. 12/23/2019 Bilateral Screening Mammogram, [facility]. 01/31/2022 Bilateral MG 3D screening mammo w/cad, [facility]. 12/27/2022 Bilateral MG 3D diag mammo w/cad [facility], [facility]. 06/28/2023 Left MG 3D diag mammo w/cad [facility], [facility]. Tissue Density: There are scattered areas of fibroglandular density. Findings: Analyzed By CAD. No distinct mass or distortion. No suspicious microcalcifications. Overall Assessment: Negative, BI-RAD 1 Management: Screening Mammogram of both breasts in 1 year. . Results were given to the patient verbally at the time of exam. Patient should continue monthly self-breast exams. A clinical breast exam by your physician is recommended on an annual basis. This exam should not preclude additional follow-up of suspicious palpable abnormalities. Note on Grace scores and lifetime risk: 1. A Grace score greater than 3% is considered moderate risk. If this is the case, consider specialist referral to assess eligibility for a risk reducing agent. 2. If overall lifetime risk for the development of breast cancer is 20% or higher, the patient may qualify for future screening with alternating mammogram and breast MRI. [facility], , 01/01/2024 2:48 PM. Electronically signed and approved by: Martin Delgado M.D. Radiologis
== END | disposition home or self-care (01) ==
LOC: RADMAMWWP 14:26
PROVIDERS: ATTEND Obstetrics & Gynecology
DX: R92.8 Other abnormal and inconclusive findings on diagnostic imaging of breast (principal); R92.323 Mammographic fibroglandular density, bilateral breasts; Z78.0 Asymptomatic menopausal state
CPT/HCPCS: 77062; 77066

== ENCOUNTER → 2024-01-08 | Outpatient (CLI) | payer BC ==
[2024-01-08 08:58] VITALS: BP 121/79; PULSE 62; RESP 16; TEMP 98.3
--- NOTE | 2024-01-08 09:21 | P.HPOB ---
History of Present Illness H&P Date: 01/08/24 Chief Complaint: The patient is here for her routine gynecologic exam. This is a 63-year-old -0-1-0 with an LMP of 2015. Patient is without gynecologic complaints and denies any postmenopausal bleeding. She recently had a bilateral diagnostic mammogram on 01/01/2024 and this was benign. Doing a screening mammogram in 1 year was recommended. Review of Systems The patient has lost 26 pounds over the last year. Neurologic: She has been h aving issues with vertigo and was diagnosed with Mnire's disease. She denies respiratory, cardiac, or G.I. problems. Past Medical History Past Medical History: Coronary Artery Disease (CAD), GERD/Reflux, Hyperlipidemia, Hypertension, Skin Disorder, Sleep Apnea/CPAP/BIPAP Additional Past Medical History / Comment(s): SEASONAL ALLERGIES, USES C-PAP MACHINE. Mnire's disease. PAST PARER HISTORY: She has no history of STDs. History of Any Multi-Drug Resistant Organisms: None Reported Past Surgical History: Heart Catheterization Additional Past Surgical History / Comment(s): colonoscopy 2019(next after 5yr). D&C 2013. Past Anesthesia/Blood Transfusion Reactions: No Reported Reaction Past Psychological History: Anxiety Smoking Status: Former smoker Past Alcohol Use History: Rare Additional Past Alcohol Use History / Comment(s): QUIT SMOKING 2003, SMOKED 1/2 PPD, SMOKED 20 YEARS. Past Drug Use History: None Reported Additional History: She is single and has been with her boyfriend since 2007. The both have their own residence. 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 - Past Family History Father Family Medical History: Coronary Artery Disease (CAD), CVA/TIA, Dementia Mother Family Medical History: CVA/TIA, Dementia Brother(s) Family Medical History: CVA/TIA Medications and Allergies Home Medications Medication Instructions Recorded Confirmed Type Rosuvastatin Calcium [Crestor] 20 mg PO HS 07/24/17 01/08/24 History Cholecalciferol (Vitamin D3) 2,000 unit PO DAILY 10/01/18 01/08/24 History [Vitamin D3] Aspirin [Adult Low Dose Aspirin EC] 81 mg PO HS 12/10/18 01/08/24 History Multivitamins, Thera [Multivitamin 1 tab PO DAILY 12/10/18 01/08/24 History (formulary)] Ubidecarenone [Co Q-10] 100 mg PO BID 12/10/18 01/08/24 History amLODIPine BESYLATE/BENAZEPRIL 1 each PO DAILY 12/10/18 01/08/24 History [amLODIPine BESYLATE/BENAZEPRIL 5-10 MG] Triamterene 50 mg PO DAILY 01/31/22 01/08/24 History Fexofenadine HCl [Lani Allergy] 60 mg PO DAILY 01/08/24 01/08/24 History inositoL [Inositol] 750 mg PO DAILY 01/08/24 01/08/24 History Allergies Allergy/AdvReac Type Severity Reaction Status Date / Time latex Allergy red skin Verified 01/08/24 08:51 Penicillins AdvReac Nausea & Verified 01/08/24 08:51 Vomiting & Diarrhea Exam Vital Signs Temp Pulse Resp BP Pulse Ox 01/08/24 08:55 98.3 F 62 16 121/79 99 Intake and Output 01/07/24 01/08/24 01/08/24 22:59 06:59 14:59 Other: Weight 104.326 kg Height 5 feet 2 inches, weight 230 pounds, BMI 42.1. This is a well-developed well-nourished 9 female who is alert and oriented times 3 in no acute distress. HEENT: Within normal limits. NECK: Supple without mass or thyromegaly. CHEST AND LUNGS: Clear to auscultation. HEART: Regular rate and rhythm. BREASTS: Are without mass or discharge. AXILLARY EXAM: Negative for adenopathy. BACK: Negative for CVA tenderness. ABDOMEN: Soft, nontender, without palpable masses. PELVIC EXAM: Normal external genitalia with mild atrophy. Cervix and vagina appear normal with mild atrophy. There is no unusual discharge. There is no evidence of prolapse. The uterus is midposition, nongravid size and nontender. There are no palpable adnexal masses or tenderness. RECTAL EXAM: Vaginal exam is negative for mass or tenderness and is negative for occult blood. EXTREMITIES: Nontender. IMPRESSION: 1. 63-year-old menopausal female with normal gynecologic exam. PLAN: 1. Pap smear cotest was performed. 2. Self breast awareness was discussed with the patient. We have also discussed symptoms associated with inflammatory breast cancer. 3. Bilateral diagnostic mammogram was done on 01/01/2024 and was benign. Screening mammogram will be done in 1 year. 4. Osteoporosis prevention was discussed. I have stressed the importance of adequate calcium, vitamin D and regular exercise. Recommended amounts of calcium and vitamin D were also discussed. She had a normal bone density test done on 08/10/2020. Will plan on repeating the bone density test in approximately 2 years. 5. She was advised to return in one year for her annual well woman exam.
== END ==
LOC: WWCWWP 08:33
PROVIDERS: ATTEND Obstetrics & Gynecology
DX: Z01.419 Encounter for gynecological examination (general) (routine) without abnormal findings (principal); R92.8 Other abnormal and inconclusive findings on diagnostic imaging of breast; H81.09 Meniere's disease, unspecified ear; Z91.040 Latex allergy status; Z88.0 Allergy status to penicillin; Z87.891 Personal history of nicotine dependence

== ENCOUNTER → 2024-02-07 | Outpatient (CLI) | payer BC ==
[2024-02-07 13:50] VITALS: BP 120/81; PULSE 60; RESP 12; TEMP 98.4
--- NOTE | 2024-02-07 14:40 | P.PROGSL ---
Subjective DATE: 02/07/2024 FOLLOW UP VISIT. Patient with obstructive sleep apnea hypopnea syndrome return to sleep center for follow-up visit. Information from previous visit have been reviewed. Patient is using PAP equipment every night for the whole night, getting PAP supplies in time. The patient does not have significant problems with the mask, PAP unit and humidification. [place] sleepiness scale is 2. I checked information from PAP unit. PAP unit pressure 6-13, average 10.4 cm H2O. Usage is 80% for more then 4 hours, average 4.7 hours per night. Leak is increased to 30 l/m, which is in acceptable range. Apnea Hypopnea Index is 3.9, which is normal. MEDICATIONS have been reviewed, please see below. During physical exam: GENERAL: A pleasant patient without any distress. VITAL SIGNS: Please see below, weight is 221 lbs. HEENT: PERRLA, EOMI.low position of soft palate, Mallapati 23. NECK: Supple. No JVD. LUNGS: Clear to percussion and to auscultation. Good air exchange. No wheezing or rhonchi. HEART: S1, S2 regular. ABDOMEN: Soft and nontender. Slightly obese EXTREMITIES: No clubbing or cyanosis. AIRCRAFT ELECTRICAL SYSTEMS SPECIALIST: Awake, alert, and oriented x3. No focal deficit. Impressions: 1. Obstructive sleep apnea-hypopnea syndrome. Patient demonstrated great compliance with treatment, benefiting from treatment. 2. Obesity, BMI 39.7, patient lost 36 pounds comparing with the previous visit. 3. Hypertension. 4. Hyperlipidemia. 5. History of asthma. 6. Status post D&C. 7. History of recent nasal infection. Plan: 1. Continue using PAP equipment every night for the whole night. 2. Sleep hygiene with regular time in bed for at least 7.5-8 hours 3. PAP unit should stay lower then position of the head. 4. Advised patient to remove all remaining water from humidifier canister daily and make it dry after each usage. Refill canister with fresh distilled water before each usage. 5. Watching weight. 6. Precautions related to driving. No driving if feel any sleepiness. 7. I will maintain prescription for PAP supplies including mask, tube, filters. 8. Follow up visit in 4 months or earlier if patient has any problems. Thank you very much for allowing me to participate in the management of your patient. Enzo Benitez MD, PhD, FAASM. Diplomat of [place] [employer], Sleep Medicine Board by [place] [employer] Associate Technician of [facility] [place] Objective - Vital Signs Vital Signs: Vital Signs Temp 98.4 F 02/07/24 13:50 Pulse 60 02/07/24 13:50 Resp 12 02/07/24 13:50 BP 120/81 02/07/24 13:50 Pulse Ox 97 02/07/24 13:50 FiO2 Intake & Output 02/06/24 02/07/24 02/07/24 18:59 06:59 18:59 Weight 100.244 kg Home Medications: Home Medications Medication Instructions Recorded Confirmed Type Rosuvastatin Calcium [Crestor] 20 mg PO HS 07/24/17 02/07/24 History Cholecalciferol (Vitamin D3) 2,000 unit PO DAILY 10/01/18 02/07/24 History [Vitamin D3] Aspirin [Adult Low Dose Aspirin EC] 81 mg PO HS 12/10/18 02/07/24 History Multivitamins, Thera [Multivitamin 1 tab PO DAILY 12/10/18 02/07/24 History (formulary)] Ubidecarenone [Co Q-10] 100 mg PO BID 12/10/18 02/07/24 History amLODIPine BESYLATE/BENAZEPRIL 1 each PO DAILY 12/10/18 02/07/24 History [amLODIPine BESYLATE/BENAZEPRIL 5-10 MG] Triamterene 50 mg PO DAILY 01/31/22 02/07/24 History Fexofenadine HCl [Lani Allergy] 60 mg PO DAILY 01/08/24 02/07/24 History inositoL [Inositol] 750 mg PO DAILY 01/08/24 02/07/24 History Linaclotide [Linzess] 72 mcg PO DAILY 02/07/24 02/07/24 History
== END ==
LOC: 3 N SLEEP 13:14
PROVIDERS: ATTEND Internal Medicine
DX: G47.33 Obstructive sleep apnea (adult) (pediatric) (principal); E66.9 Obesity, unspecified; I10 Essential (primary) hypertension; E78.5 Hyperlipidemia, unspecified; Z98.890 Other specified postprocedural states; Z87.09 Personal history of other diseases of the respiratory system; Z99.89 Dependence on other enabling machines and devices; Z68.39 Body mass index [BMI] 39.0-39.9, adult; Z91.040 Latex allergy status; Z88.0 Allergy status to penicillin; Z79.899 Other long term (current) drug therapy; Z87.891 Personal history of nicotine dependence
CPT/HCPCS: 99212

== ENCOUNTER → 2024-05-28 | Outpatient (CLI) | payer BC ==
[2024-05-28 14:56] VITALS: BP 110/76; PULSE 59; RESP 16; TEMP 98
--- NOTE | 2024-05-28 15:10 | P.PROGSL ---
Subjective DATE: 05/28/2024 FOLLOW UP VISIT. Patient with obstructive sleep apnea hypopnea syndrome return to sleep center for follow-up visit. Information from previous visit have been reviewed. Patient is using PAP equipment every night for the whole night, getting PAP supplies in time. The patient does not have significant problems with the mask, PAP unit and humidification. [place] sleepiness scale is 6, which is normal. I checked information from PAP unit. PAP unit pressure 6-13, average 10.8 cm H2O. Usage is 100% for more then 4 hours, average 4.6 hours per night. Leak is 32 l/m, which is in increased range. Apnea Hypopnea Index is 4.7, which is normal. MEDICATIONS have been reviewed, please see below. During physical exam: GENERAL: A pleasant patient without any distress. VITAL SIGNS: Please see below, weight is 225.6 lbs. HEENT: PERRLA, EOMI.low position of soft palate, Mallapati 23. NECK: Supple. No JVD. LUNGS: Clear to percussion and to auscultation. Good air exchange. No wheezing or rhonchi. HEART: S1, S2 regular. ABDOMEN: Soft and nontender. Obese EXTREMITIES: No clubbing or cyanosis. FIN[employer] RETIREMENT PLAN SPECIALIST: Awake, alert, and oriented x3. No focal deficit. Impressions: 1. Obstructive sleep apnea-hypopnea syndrome. Patient demonstrated great compliance with treatment, benefiting from treatment. 2. Obesity, BMI 41.8, patient increased weight on 4 pounds comparing with previous visit. 3. Hypertension. 4. Hyperlipidemia. 5. History of asthma. 6. Status post D&C. Plan: 1. Continue using PAP equipment every night for the whole night. 2. Sleep hygiene with regular time in bed for at least 7.5-8 hours 3. PAP unit should stay lower then position of the head. 4. Advised patient to remove all remaining water from humidifier canister daily and make it dry after each usage. Refill canister with fresh distilled water before each usage. 5. Watching and losing weight. 6. Precautions related to driving. No driving if feel any sleepiness. 7. I will maintain prescription for PAP supplies including mask, tube, filters. 8. Follow up visit in 8 months or earlier if patient has any problems. Thank you very much for allowing me to participate in the management of your patient. Enzo Benitez MD, PhD, FAASM. Diplomat of [place] [employer], Sleep Medicine Board by [employer] Administrative Office Specialist of [facility] [place] Objective - Vital Signs Vital Signs: Vital Signs Temp 98.0 F 05/28/24 14:55 Pulse 59 L 05/28/24 14:55 Resp 16 05/28/24 14:55 BP 110/76 05/28/24 14:55 Pulse Ox 98 05/28/24 14:55 FiO2 Intake & Output 05/27/24 05/28/24 05/28/24 18:59 06:59 18:59 Weight 102.228 kg Home Medications: Home Medications Medication Instructions Recorded Confirmed Type Rosuvastatin Calcium [Crestor] 20 mg PO HS 07/24/17 05/28/24 History Cholecalciferol (Vitamin D3) 5,000 unit PO HS 10/01/18 03/21/24 History [Vitamin D3] Aspirin [Adult Low Dose Aspirin EC] 81 mg PO HS 12/10/18 05/28/24 History Multivitamins, Thera [Multivitamin 1 tab PO DAILY 12/10/18 03/19/24 History (formulary)] Ubidecarenone [Co Q-10] 100 mg PO DAILY 12/10/18 03/21/24 History Fexofenadine HCl [Lani Allergy] 180 mg PO DAILY 01/08/24 05/28/24 History inositoL [Inositol] 750 mg PO DAILY 01/08/24 03/21/24 History Linaclotide [Linzess] 72 mcg PO DAILY 02/07/24 03/21/24 History Betahistine 16 mg PO TID 03/19/24 03/21/24 History Cyanocobalamin/Folic AC/Vit B6 1 tab PO DAILY 03/19/24 03/21/24 History [Homocysteine Formula Tablet] Magnesium 200 mg PO HS 03/19/24 03/21/24 History Rimegepant Sulfate [Nurtec Odt] 75 mg PO DAILY PRN 03/19/24 03/21/24 History Triamterene/Hydrochlorothiazid 1 each PO DAILY 03/19/24 05/28/24 History [Triamterene-Hctz 37.5-25 mg Cp] amLODIPine BESYLATE/BENAZEPRIL 1 cap PO DAILY 03/19/24 05/28/24 History [Lotrel 2.5-10 MG]
== END ==
LOC: 3 N SLEEP 14:38
PROVIDERS: ATTEND Internal Medicine
DX: G47.33 Obstructive sleep apnea (adult) (pediatric) (principal); E66.9 Obesity, unspecified; I10 Essential (primary) hypertension; E78.5 Hyperlipidemia, unspecified; Z87.09 Personal history of other diseases of the respiratory system; Z68.41 Body mass index [BMI] 40.0-44.9, adult; Z98.890 Other specified postprocedural states; Z88.0 Allergy status to penicillin; Z91.040 Latex allergy status; Z87.891 Personal history of nicotine dependence
CPT/HCPCS: 99212